=== PATIENT | female | born 1960 | race African-American/Black ===

== ENCOUNTER → 2018-03-12 | Outpatient (CLI) | payer MEDICAID ==
[2018-03-12 11:10] LABS: HCT 36.3 % (34.0-46.0); HGB 12.1 gm/dL (11.4-16.0); MCHC 33.4 g/dL (31.0-37.0); MCV 86.9 fL (80.0-100.0); Mean Platelet Volume 6.9; Platelet Count 248 k/uL (150-450); RBC 4.17 m/uL (3.80-5.40); RDW 13.3 % (11.5-15.5)
[2018-03-12 17:51] LABS: Albumin 3.9 g/dL (3.80-4.90); Albumin/Globulin Ratio 1.34 (1.20-2.10); Anion Gap 11.5 mmol/L (4.00-12.00); Carbon Dioxide 26.5 mmol/L (21.6-31.8); Globulin 2.9 g/dL (1.6-3.3); LDL Cholesterol,Calculated 154.4 mg/dL (0.0-131.0); Potassium 4.8 mmol/L (3.5-5.5); Total Bilirubin 0.4 mg/dL (0.2-1.2); Total Protein 6.8 g/dL (6.2-8.2); VLDL Calculation 17.6 mg/dL (5.00-40.00)
[2018-03-12 21:02] LABS: Hemoglobin A1C 14.8 % (4.0-6.0)
== END | disposition home or self-care (01) ==
LOC: LABWHC1 10:06
PROVIDERS: ATTEND Internal Medicine
DX: E11.40 Type 2 diabetes mellitus with diabetic neuropathy, unspecified (principal); E07.9 Disorder of thyroid, unspecified; E78.2 Mixed hyperlipidemia
CPT/HCPCS: 36415; 80053; 80061; 82043; 82570; 83036; 84443; 85027

== ENCOUNTER → 2018-03-18 | Outpatient (CLI) | payer MEDICAID ==
--- NOTE | 2018-03-18 23:42 | MR ---
EXAMINATION TYPE: MR hand RT wo con DATE OF EXAM: 03/18/2018 COMPARISON: HISTORY: Rt Hand 3rd digit open wound at end of digit, Skin ulcer with necrosis of muscle Standard multiplanar, multisequence MRI departmental protocol Multiplanar, multisequence images of the right hand were acquired. FINDINGS: On the STIR images there is increased signal in the distal phalanx of the middle finger. Th is has corresponding decreased signal on the T1 images. There is some increased fluid signal around t he PIP joint of the little finger. I see no fracture line. 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 IMPRESSION: Edema in the distal phalanx of the middle finger with surrounding mild soft tissue swelling and edema . This is consistent with cellulitis and osteomyelitis. Fluid signal around the middle phalanx and PIP joint of the little finger is nonspecific and could re late to some synovitis.
== END | disposition home or self-care (01) ==
LOC: RADMRIMAIN 21:30
PROVIDERS: ATTEND Internal Medicine
DX: L98.493 Non-pressure chronic ulcer of skin of other sites with necrosis of muscle (principal)

== ENCOUNTER → 2018-05-02 | Outpatient (CLI) | payer MEDICAID ==
--- NOTE | 2018-05-02 15:50 | US ---
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 GLAND SIZE: Right Lobe: 5.1 x 1.8 x 1.7 cm Overall Parenchyma: heterogenous Left Lobe: 5.0 x 1.4 x 1.7 cm Overall Parenchyma: heterogeneous Isthmus Thickness: 1.3 cm NODULES RIGHT: # of nodules measured on right: 4 1. 0.7 X 0.7 x 0.7 cm anechoic cystic nodule at the upper pole with well-defined margins. This nod ule is wider than tall and shows no intranodular vascularity. No prior measurement 2. 1.2 X 0.8 x 1.1 cm anechoic cystic nodule at the upper pole with well-defined margins. This nodu le is wider than tall and shows no intranodular vascularity. No prior measurement 3. 1.2 X 0.8 x 0.8 cm isoechoic solid nodule at the medial lower pole with poorly defined margins. This nodule is wider than tall and shows intranodular vascularity. Prior: Prior: This nodule and nodule 3 was measured as 1 nodule. Previous report not available t o technologist at time of exam due to PACS failure. Technologist measured at 2 nodules. This nodule h as irregular borders. 4. 1.3 X 0.9 x 1.2 cm isoechoic solid nodule at the lateral lower pole with poorly defined margins. This nodule is wider than tall and shows intranodular vascularity. Prior: This nodule and nodule 3 was measured as 1 nodule. Previous report not available to technol abdiel at time of exam due to PACS failure. Technologist measured at 2 nodules. This nodule has irregu lar borders. LEFT: # of nodules measured on left: 2 1. 0.8 X 0.6 x 0.6 cm hypoechoic solid nodule at the mid pole with well-defined margins. This nodu le is wider than tall and shows intranodular vascularity. Prior size: 0.7 x 0.5 x 0.8 cm 2. 0.9 X 0.8 x 1.0 cm anechoic mixed nodule at the lower pole with well-defined margins This nodule is wider than tall and shows no intranodular vascularity. Prior size: 0.6 x 0.4 x 0.6 cm ISTHMUS: # of nodules measured in the isthmus: 1 1. 2.5 X 1.3 x 2.1 cm anechoic mixed nodule at the mid pole with well-defined margins. This nodule is taller than wide and shows no intranodular vascularity. Prior size: 1.4 x 0.8 x 1.4 cm Bilateral neck scanned, no evidence of lymphadenopathy. IMPRESSION: 1. Enlarging nodule at the isthmus. 2. Enlarging right lobe thyroid nodules medial and inferior pole.
== END ==
LOC: RADUSWWP 08:59
PROVIDERS: ATTEND Internal Medicine
DX: E04.2 Nontoxic multinodular goiter (principal)
CPT/HCPCS: 76536

== ENCOUNTER 2018-05-30 08:50 | Day surgery (SDC) | payer MEDICAID ==
[2018-05-30 09:31] VITALS: TEMP 98.3
[2018-05-30] MEDS ORDERED: ALPRAZolam 0.5 MG TAB PO STA (09:34)
[2018-05-30 12:12] VITALS: RESP 16
[2018-05-30 12:13] VITALS: BP 146/76; PULSE 90
--- NOTE | 2018-05-30 12:27 | US ---
ULTRASOUND GUIDED FNA THYROID BIOPSY: CLINICAL HISTORY: Ultrasound request for 3 right-sided nodules single left-sided FINDINGS: The procedure was explained to the patient. The risks, complications, benefits and alternatives were discussed and any questions were answered. Informed consent was obtained. Patient was placed supin e on the ultrasound table and prepped and draped in the usual sterile fashion. Utilizing a 25 gauge needle, five passes were made into the each of the 4 requested nodules. Note is made the upper pole right thyroid nodule and isthmus nodule or cystic which may lower diagnostic yield of these nodules g iven lack of significant soft tissue component. Patient was stable throughout the procedure. Pathology is pending. All elements of maximal barrier technique were utilized. IMPRESSION: 1. Successful ultrasound guided FNA thyroid biopsy.
== END 2018-05-30 11:30 | disposition home or self-care (01) ==
LOC: RADPROMAIN 08:50
PROVIDERS: ATTEND Otolaryngology
DX: E04.1 Nontoxic single thyroid nodule (principal)
CPT/HCPCS: 10005; 10006; 88173; 88305

== ENCOUNTER 2018-06-03 06:51 | Day surgery (SDC) | payer MEDICAID ==
[2018-05-28 17:48] VITALS: BMI 28.2
[~2018-06-03 06:51] MED LIST: LACTATED RINGERS 1,000 ML IV SCH; ceFAZolin IN SWFI 2 GM/20 ML SYRINGE IVP ONE
[2018-06-03 07:11] VITALS: TEMP 98.5
[2018-06-03] MEDS ORDERED: LIDOCAINE 1% 20 ML VIAL (10MG/ML) FOR IV START INTRADERMA ONE (07:19)
[2018-06-03 07:23] LABS: Glucose,Whole Blood 293 mg/dL (75-99)
[2018-06-03] MEDS ORDERED: INSULIN ASPART (NovoLOG) 100 UNIT/ML VIAL SQ ONE (07:33)
[2018-06-03] MEDS ORDERED: BUPIVACAINE (PF) 0.5% 30 ML VIAL SQ ONE ×2 (07:56→08:22)
[2018-06-03] MEDS ORDERED: LIDOCAINE 2% INJ 20 MG/ML SQ ONE ×2 (07:56→08:22)
[2018-06-03] MEDS ORDERED: fentaNYL (PF) 50 MCG/ML 2 ML AMP ONE (08:11)
[2018-06-03] MEDS ORDERED: LIDOCAINE 1% INJ 10MG/ML (20 ML MDV) ONE (08:11)
[2018-06-03] MEDS ORDERED: PROPOFOL 10 MG/ML 20 ML VIAL IV ONE (08:11)
[2018-06-03] MEDS ORDERED: MIDAZOLAM 2 MG/2 ML VIAL ONE (08:11)
[2018-06-03 08:47] LABS: Glucose,Whole Blood 180 mg/dL (75-99)
[2018-06-03 09:01] VITALS: RESP 18
[2018-06-03 09:24] VITALS: BP 130/70; PULSE 89
--- NOTE | 2018-06-03 13:36 | OP ---
OPERATIVE REPORT DATE OF SURGERY: 06/03/2018 SURGEON: Toni Toscano DO. PREOPERATIVE DIAGNOSIS: Left carpal tunnel syndrome. POSTOPERATIVE DIAGNOSIS: Left carpal tunnel syndrome. PROCEDURE: Left carpal tunnel release. DESCRIPTION OF PROCEDURE: The patient was taken to the operative suite where a sedation was administered by the Department of Anesthesia. I then performed a local injection along the line of the incision with a combination of Marcaine and Xylocaine both without epinephrine. The hand was then prepped and draped in the usual manner. The arm was elevated, exsanguinated and the cuff was inflated to 250 mm of mercury. A longitudinal incision was made along the ring finger ray distal to the wrist crease. Dissection was taken through the skin and subcutaneous tissue, initially sharp through the skin and then blunt through the subcutaneous tissue to ensure protection of any potential terminal transverse branches of the palmar cutaneous nerve. The palmar fascia was then incised under direct vision longitudinally exposing the transverse carpal ligament. The transverse carpal ligament also was incised under direct vision. The dissection was then continued proximally beneath the skin under direct vision to release the distal forearm fascia. The median nerve was then reflected free of tenosynovium to ensure no adhesions. The tourniquet was then released. The wound was then irrigated and the skin was closed with a running 5-0 nylon suture. A soft bulky dressing was applied including a volar plaster splint holding the wrist in a neutral slightly extended position. The patient was then taken to the recovery room in satisfactory condition. MMODL / IJN: [id number] /
== END 2018-06-03 09:10 | disposition home or self-care (01) ==
LOC: OR 06:51
PROVIDERS: ATTEND Orthopaedic Surgery Hand Surgery
DX: G56.02 Carpal tunnel syndrome, left upper limb (principal); I10 Essential (primary) hypertension; E10.40 Type 1 diabetes mellitus with diabetic neuropathy, unspecified; E10.51 Type 1 diabetes mellitus with diabetic peripheral angiopathy without gangrene; K21.9 Gastro-esophageal reflux disease without esophagitis; Z86.73 Personal history of transient ischemic attack (TIA), and cerebral infarction without residual deficits; Z79.4 Long term (current) use of insulin; Z79.899 Other long term (current) drug therapy; E78.5 Hyperlipidemia, unspecified; Z89.021 Acquired absence of right finger(s); Z89.421 Acquired absence of other right toe(s)
CPT/HCPCS: 64721; J2001 ×2; J2250; J3010; J2704

== ENCOUNTER → 2018-07-23 | Outpatient (CLI) | payer MEDICAID ==
[2018-07-23 19:29] LABS: Albumin 3.8 g/dL (3.80-4.90); Albumin/Globulin Ratio 1.31 (1.60-3.17); Anion Gap 6.7 mmol/L (4.00-12.00); Calcium 9.1 mg/dL (8.7-10.3); Carbon Dioxide 28.3 mmol/L (21.6-31.8); Globulin 2.9 g/dL (1.6-3.3); LDL Cholesterol,Calculated 153.8 mg/dL (0.0-131.0); Potassium 4.6 mmol/L (3.5-5.5); Total Bilirubin 0.4 mg/dL (0.3-1.2); Total Protein 6.7 g/dL (6.2-8.2); VLDL Calculation 15.2 mg/dL (5.00-40.00)
[2018-07-23 21:24] LABS: Hemoglobin A1C 13.2 % (4.0-6.0)
== END ==
LOC: LABWHC1 10:19
PROVIDERS: ATTEND Internal Medicine
DX: E11.40 Type 2 diabetes mellitus with diabetic neuropathy, unspecified (principal); E78.2 Mixed hyperlipidemia
CPT/HCPCS: 36415; 80053; 80061; 83036

== ENCOUNTER 2018-08-05 06:29 | Day surgery (SDC) | payer MEDICAID ==
[2018-08-04 09:31] VITALS: BMI 29.8
[~2018-08-05 06:29] MED LIST changes: +DEXAMETHASONE SOD PHOSPHATE 10 MG/ML 1 ML VIAL IV ONE; +HYDROmorphone 0.5 MG/0.5 ML SYRINGE IVP PRN; +MIDAZOLAM 2 MG/2 ML VIAL IV PRN; +ONDANSETRON 4 MG/2 ML VIAL IVP ONE; +Pre Op ABX Message 1 EACH MISC MISCELLANE ONE; +SCOPOLAMINE 1.5MG/72HR PATCH TRANSDERM ONE; -ceFAZolin IN SWFI 2 GM/20 ML SYRINGE IVP ONE
[2018-08-05 06:49] VITALS: TEMP 97.8
[2018-08-05] MEDS ORDERED: INSULIN ASPART (NovoLOG) 100 UNIT/ML VIAL SQ ONE ×2 (07:21→08:05)
[2018-08-05 07:23] LABS: Glucose,Whole Blood 459 mg/dL (75-99)
[2018-08-05] MEDS ORDERED: fentaNYL (PF) 50 MCG/ML 2 ML AMP ONE (07:27)
[2018-08-05] MEDS ORDERED: PROPOFOL 10 MG/ML 20 ML VIAL IV ONE (07:27)
[2018-08-05] MEDS ORDERED: MIDAZOLAM 2 MG/2 ML VIAL ONE (07:27)
[2018-08-05] MEDS ORDERED: BUPIVACAINE (PF) 0.5% 30 ML VIAL SQ ONE (07:40)
[2018-08-05] MEDS ORDERED: LIDOCAINE 2% INJ 20 MG/ML SQ ONE (07:40)
[2018-08-05 07:57] VITALS: RESP 16
[2018-08-05 08:05] LABS: Glucose,Whole Blood 393 mg/dL (75-99)
[2018-08-05 08:22] VITALS: BP 123/83; PULSE 90
--- NOTE | 2018-08-05 23:02 | OP ---
OPERATIVE REPORT DATE OF SERVICE: 08/05/2018. PREOPERATIVE DIAGNOSIS: Right carpal tunnel syndrome. POSTOPERATIVE DIAGNOSIS: Right carpal tunnel syndrome. PROCEDURE: Right carpal tunnel release. DESCRIPTION OF PROCEDURE: The patient is taken to the Operative Suite where the procedure was done local with sedation. A light amount of IV sedation was provided by the Department of Anesthesia but the patient was kept alert enough to indicate any ill effect in the hand or fingers during the procedure. Two endoscopic portals were prepared and anesthetized in the usual way. The proximal portal was approximately 1 cm proximal to the distal wrist crease and just ulnar to the midline. The distal portal was longitudinal, located at the edge of the transverse carpal ligament, using the usual anatomical landmarks. Both incisions were anesthetized with 2% Xylocaine and 0.5% Marcaine, both without Epinephrine. The proximal incision was opened first, retractors were used for exposure and for hemostasis. Blunt dissection was taken through the subcutaneous tissue until the forearm fascia was identified. This was then incised longitudinally. By applying volar retraction at the distal aspect of the incision, the potential space beneath the forearm fascia and the bursa containing the flexor tensions was easily identified. A blunt probe was then inserted into this space down into the transverse carpal ligament. The undersurface of the transverse carpal ligament was palpated, and by running the dissector along its undersurface, a washboard effect could be palpated, insuring the proper position had been obtained. At this point, the distal incision was opened. Dissection was taken bluntly through the subcutaneous tissue to the palmar fascia. This is incised longitudinally, and the edge of the transverse carpal ligament was identified under direct vision. The spatula dissector was then brought through the distal incision to ensure the entire transverse carpal ligament was identified and the proper dissection planes had been attained. A trocar and slotted cannula assembly are inserted into the proximal incision. The hand was placed on the rodriguez in an extended position. Retractors were placed into the distal incision so the trocar assembly could then be brought out through the distal incision under direct visualization. The trocar was removed leaving the slotted cannula. The endoscope then inserted in the proximal incision and the light and the focus were adjusted. Using a variety of knives, the transverse carpal ligament was released under direct vision. Complete release of the transverse carpal ligament was confirmed by a variety of means. First of all, the edges could be seen to directly retract apart as they exist under tension. In addition, the fat could be seen to fall into the cannula. Additionally, a probe could be palpated beneath the skin and the lights in the scope could be seen much more clearly beneath the skin. The trocar was reinserted into the slotted cannula and the assembly was removed. The hand was then taken out of the hand rodriguez. The patient was asked to put the fingers through a full range of motion. The patient was asked of any numbness in the fingers and none was noted. Both incisions were closed with a single suture of 6-0 nylon. Soft, bulky dressing was applied and the patient was taken to the Recovery Room in satisfactory condition. MMODL / IJN: [id number] /
--- NOTE | 2018-08-07 14:42 | CDI ---
Outpatient Documentation Clarification Form Date: 08/07/18 CDS/Art Conservator Name: Mili Morales Phone: If any questions, call Rae Mcgraw Application Services Manager at [phone] Patient Name: Liliana Sands Admit Date: 08/05/18 Discharge Date: 08/05/18 ATTENTION: The [facility] Coding Staff appreciate your assistance in clarifying documentation. Please respond to the clarification below the line at the bottom and electronically sign. The [facility] Coding staff will review the response and follow-up if needed. Please note: Queries are made part of the Legal Health Record. If you have any questions, please contact the Application Services Manager. Dear Dr. Toscano, Please provide clarification as to the type of diabetes for this patients. On the first page of the H&P under Past Medical History diabetes type I is indicated. On page 2 of the H&P Under Diagnosis, type 2 is indicated. Please clarify. Thank you for your kind consideration. Don't know MTDD
== END 2018-08-05 08:42 | disposition home or self-care (01) ==
LOC: OR 06:29
PROVIDERS: ATTEND Orthopaedic Surgery Hand Surgery
DX: G56.01 Carpal tunnel syndrome, right upper limb (principal); Z79.4 Long term (current) use of insulin; Z79.899 Other long term (current) drug therapy; I10 Essential (primary) hypertension; E78.49 Other hyperlipidemia; J45.909 Unspecified asthma, uncomplicated; G47.33 Obstructive sleep apnea (adult) (pediatric); Z87.891 Personal history of nicotine dependence; Z86.73 Personal history of transient ischemic attack (TIA), and cerebral infarction without residual deficits; E11.9 Type 2 diabetes mellitus without complications
CPT/HCPCS: 29848; J2001; J2250; J2405; J3010; J2704

== ENCOUNTER → 2018-08-14 | Outpatient (CLI) | payer MEDICAID ==
--- NOTE | 2018-08-26 10:03 | MM ---
Reason for exam: screening (asymptomatic). Last mammogram was performed 1 year and 9 months ago. History: Patient is postmenopausal. Family history of breast cancer in mother. Benign excisional biopsy of the right breast, 2016. Physical Findings: A clinical breast exam by your physician is recommended on an annual basis and results should be correlated with mammographic findings. MG Screening Mammo w CAD Bilateral CC and MLO view(s) were taken. Prior study comparison: November 01, 2016, mammogram, performed at [facility]. May 10, 2014, mammogram, performed at [facility]. January 02, 2013, bilateral digital screening mammo w/CAD. December 18, 2010, bilateral digital screening mammo w/CAD. The breast tissue is heterogeneously dense. This may lower the sensitivity of mammography. Benign appearing calcifications in the right breast. No suspicious abnormality. Prominent bilateral axillary lymph nodes back to 2009. Right biopsy marker noted. No significant changes when compared with prior studies. ASSESSMENT: Benign, BI-RAD 2 RECOMMENDATION: Routine screening mammogram of both breasts in 1 year. Manage on a clinical basis with regard to chronic bilateral axillary lymph node prominence back to 2009.
== END | disposition home or self-care (01) ==
LOC: RADMAMWWP 11:52
PROVIDERS: ATTEND Internal Medicine
DX: Z12.31 Encounter for screening mammogram for malignant neoplasm of breast (principal)
CPT/HCPCS: 77067

== ENCOUNTER → 2018-10-03 | Outpatient (CLI) | payer MEDICAID ==
[2018-10-03 11:36] LABS: HCT 36.3 % (34.0-46.0); MCH 28.2 pg (25.0-35.0); MCHC 33.1 g/dL (31.0-37.0); MCV 85.3 fL (80.0-100.0); Mean Platelet Volume 7.7; Platelet Count 241 k/uL (150-450); RBC 4.25 m/uL (3.80-5.40); RDW 13.4 % (11.5-15.5); WBC 7.1 k/uL (3.8-10.6)
[2018-10-03 18:49] LABS: African American GFR (CKD) 83.4 (60.0-200.0); Albumin 3.8 g/dL (3.80-4.90); Albumin/Globulin Ratio 1.27 (1.60-3.17); Anion Gap 9.3 mmol/L (4.00-12.00); BUN/Creat Ratio 27.78 Ratio (12.00-20.00); Carbon Dioxide 25.7 mmol/L (21.6-31.8); LDL Cholesterol,Calculated 156.2 mg/dL (0.0-131.0); Potassium 4.4 mmol/L (3.5-5.5); Total Bilirubin 0.4 mg/dL (0.3-1.2); Total Protein 6.8 g/dL (6.2-8.2); VLDL Calculation 20.8 mg/dL (5.00-40.00)
[2018-10-03 18:57] LABS: T4, Free (Free Thyroxine) 1.2 ng/dL (0.80-1.80)
== END ==
LOC: LABWHC1 11:00
PROVIDERS: ATTEND Nurse Practitioner Family
DX: E78.2 Mixed hyperlipidemia (principal); G62.89 Other specified polyneuropathies
CPT/HCPCS: 36415; 80053; 80061; 82607; 84207; 84439; 84443; 84481; 85027

== ENCOUNTER → 2018-11-13 | Outpatient (CLI) | payer MEDICAID ==
[2018-11-13 14:21] LABS: Appearance,Urine Clear (Clear); Bilirubin,Urine Negative (Negative); Blood,Urine Negative (Negative); Color,Urine Light Yellow; Glucose,Urine (UA) 4+ (Negative); Ketones,Urine Negative (Negative); Leukocyte Esterase,Urine Trace (Negative); Nitrite,Urine Negative (Negative); PH, Urine 6.5 (5.0-8.0); Protein,Urine 1+ (Negative); RBC,Urine 1 /hpf (0-5); Specific Gravity,Urine 1.017 (1.001-1.035); Squamous Epithelial Cell,Urine 1 /hpf (0-4); Urobilinogen,Urine <2.0 mg/dL (<2.0); WBC,Urine 2 /hpf (0-5)
[2018-11-13 14:23] LABS: Basophils % (A) 1 %; Eosinophils # (A) 0.1 k/uL (0-0.7); Eosinophils % (A) 2 %; HCT 34.9 % (34.0-46.0); HGB 11.7 gm/dL (11.4-16.0); Lymphocytes % (A) 35 %; MCH 28.3 pg (25.0-35.0); MCHC 33.4 g/dL (31.0-37.0); MCV 84.8 fL (80.0-100.0); Mean Platelet Volume 7.3; Monocytes # (A) 0.3 k/uL (0-1.0); Monocytes % (A) 6 %; Neutrophils # (A) 3.1 k/uL (1.3-7.7); Neutrophils % (A) 54 %; Platelet Count 230 k/uL (150-450); RBC 4.12 m/uL (3.80-5.40); RDW 14.2 % (11.5-15.5); WBC 5.7 k/uL (3.8-10.6)
[2018-11-13 15:42] LABS: Erythrocyte Sedimentation Rate 41 mm/hr (0-20)
[2018-11-13 19:06] LABS: Protein, Total 6.8 g/dL (6.2-8.2)
[2018-11-13 19:13] LABS: Vitamin D 25 Hydroxy 20.6 ng/mL (30.0-100.0)
[2018-11-13 19:31] LABS: ALT 26 U/L (8-44); AST 18 U/L (13-35); African American GFR (CKD) 73.4 (60.0-200.0); Albumin/Globulin Ratio 1.41 (1.60-3.17); Alkaline Phosphatase 99 U/L (41-126); C Reactive Protein <0.4 mg/dL (0.0-0.8); Calcium 9.4 mg/dL (8.7-10.3); Carbon Dioxide 26.9 mmol/L (21.6-31.8); Chloride 96 mmol/L (96-109); Creatine Kinase 360 U/L (26-186); Globulin 2.9 g/dL (1.6-3.3); Glucose 367 mg/dL (70-110); Potassium 4.8 mmol/L (3.5-5.5); Sodium 130 mmol/L (135-145); Total Bilirubin 0.4 mg/dL (0.3-1.2); Uric Acid 4.8 mg/dL (2.9-7.7)
[2018-11-13 19:33] LABS: Rheumatoid Factor <4 IU/mL (0-13)
[2018-11-13 20:16] LABS: Hepatitis C IgG Antibody Non-Reactive (Non-Reactive)
[2018-11-13 20:58] LABS: Anti-DNA, DS unit <1.0 IU/mL; Anti-Smith Ab Interp NEGATIVE (NEGATIVE); Cardiolipin Ab IgG Interp NEGATIVE (NEGATIVE); Cardiolipin Ab IgM Interp NEGATIVE (NEGATIVE); Cardiolipin IgA Antibody 1.2 U/mL; Cardiolipin IgM Antibody 2.9 U/mL; Cyclic Citrull Pep IgG Unit <0.5 U/mL; Cyclic Citrullinated Pep IgG NEGATIVE (NEGATIVE); DNA Double-Stranded NEGATIVE (NEGATIVE); Scleroderma SC-70 Ab <0.2 AI
[2018-11-14 10:24] LABS: HLA B27 NEGATIVE
[2018-11-14 11:03] LABS: Albumin 3.68 g/dL (3.80-4.90); Gamma Globulin 1.35 g/dL (0.70-1.50)
[2018-11-14 12:57] LABS: Angiotensin-1 Converting Enz. 53 U/L (8-52)
[2018-11-14 13:32] LABS: APTT 37 Sec(s) (<43); Dilute Russell Viper Venom 40 Sec(s) (<44)
[2018-11-14 13:47] LABS: Histone Antibody 0.6 UNITS (<1.0)
[2018-11-14 15:34] LABS: C-ANCA <1:20 Titer (<1:20)
[2018-11-15 12:25] LABS: Aldolase 4.2 U/L (1.2-7.6)
== END | disposition home or self-care (01) ==
LOC: LABWHC1 13:21
PROVIDERS: ATTEND Internal Medicine Rheumatology
DX: M34.9 Systemic sclerosis, unspecified (principal); G89.29 Other chronic pain
CPT/HCPCS: 36415; 80053; 81001; 82085; 82164; 82306; 82550; 83516; 83883; 84165; 84439; 84443; 84550; 85025; 85613; 85652; 85730; 86038; 86140; 86147; 86160; 86162; 86200; 86225; 86235; 86255; 86334; 86431; 86803; 86812; 87340

== ENCOUNTER → 2019-05-06 | Outpatient (CLI) | payer MEDICAID ==
[2019-05-06 12:54] LABS: Basophils % (A) 0 %; Eosinophils # (A) 0.1 k/uL (0-0.7); Eosinophils % (A) 2 %; HCT 35.8 % (34.0-46.0); HGB 11.8 gm/dL (11.4-16.0); Lymphocytes # (A) 1.6 k/uL (1.0-4.8); Lymphocytes % (A) 36 %; MCH 27.7 pg (25.0-35.0); Mean Platelet Volume 7.4; Monocytes # (A) 0.2 k/uL (0-1.0); Monocytes % (A) 5 %; Neutrophils # (A) 2.4 k/uL (1.3-7.7); Neutrophils % (A) 54 %; Platelet Count 223 k/uL (150-450); RBC 4.26 m/uL (3.80-5.40); WBC 4.4 k/uL (3.8-10.6)
[2019-05-06 17:41] LABS: Albumin 3.8 g/dL (3.80-4.90); Albumin/Globulin Ratio 1.36 (1.60-3.17); Anion Gap 6.9 mmol/L (4.00-12.00); Calcium 9.2 mg/dL (8.7-10.3); Carbon Dioxide 28.1 mmol/L (21.6-31.8); Chol/HDL Ratio 2.51; Globulin 2.8 g/dL (1.6-3.3); LDL Cholesterol,Calculated 91.6 mg/dL (0.0-131.0); Non-African American GFR(CKD) 56.1 (60.0-200.0); Potassium 4.9 mmol/L (3.5-5.5); Total Bilirubin 0.3 mg/dL (0.2-1.2); Total Protein 6.6 g/dL (6.2-8.2); VLDL Calculation 18.4 mg/dL (5.00-40.00)
[2019-05-06 19:20] LABS: Hemoglobin A1C 13.9 % (4.0-6.0)
== END | disposition home or self-care (01) ==
LOC: LABWHC1 10:40
PROVIDERS: ATTEND Internal Medicine
DX: I10 Essential (primary) hypertension (principal); E78.5 Hyperlipidemia, unspecified; E11.9 Type 2 diabetes mellitus without complications
CPT/HCPCS: 36415; 80053; 80061; 83036; 84443; 85025

== ENCOUNTER 2019-09-28 11:51 | Inpatient (IN) | payer MEDICAID ==
--- NOTE | 2019-09-28 12:46 | ED ---
General Adult HPI - General Chief complaint: Extremity Injury, Lower Stated complaint: Leg weakness Time Seen by Provider: 09/28/19 12:10 Source: patient, RN notes reviewed Mode of arrival: ambulatory Limitations: no limitations - History of Present Illness Initial comments: Patient is a pleasant 68-year-old female presenting to the emergency Department with leg weakness. Onset of symptoms was 2 days ago. Patient was trying to walk to her car after work with sudden left leg weakness. Patient fell down. Patient needed to be helped to her car. Patient did feel off balance. Patient states she chronically has some intermittent episodes of being off balance. Patient states over the past one year she has been having headaches that have been moderate. Not severe. No headache at this time. Patient still has some left leg problems since Saturday. Patient did go to urgent care who recommended she come to the emergency department to be evaluated for possible aneurysm or clot in her brain. - Related Data Home Medications Medication Instructions Recorded Confirmed Insulin Glargine,Hum.rec.anlog 50 unit SQ QAM 05/27/18 09/28/19 [Tofrankie Cochranostjohanna] Stool Softner 1 cap PO HS 05/27/18 09/28/19 Atorvastatin [Lipitor] 10 mg PO DAILY 09/28/19 09/28/19 Dulaglutide [Trulicity] 1.5 mg SQ MO 09/28/19 09/28/19 Furosemide [Lasix] 20 mg PO DAILY 09/28/19 09/28/19 INSULIN LISPRO (humaLOG) [humaLOG] 15 units SQ AC-TID 09/28/19 09/28/19 Irbesartan [Avapro] 75 mg PO DAILY 09/28/19 09/28/19 Multivitamins, Thera [Multivitamin 1 tab PO DAILY 09/28/19 09/28/19 (formulary)] Allergies Allergy/AdvReac Type Severity Reaction Status Date / Time No Known Allergies Allergy Verified 09/28/19 13:33 Review of Systems ROS Statement: Those systems with pertinent positive or pertinent negative responses have been documented in the HPI. ROS Other: All systems not noted in ROS Statement are negative. Constitutional: Denies: fever Eyes: Denies: eye pain ENT: Denies: ear pain Respiratory: Denies: dyspnea Cardiovascular: Denies: chest pain Endocrine: Denies: fatigue Gastrointestinal: Denies: abdominal pain Genitourinary: Denies: dysuria Musculoskeletal: Denies: back pain Skin: Denies: rash Neurological: Reports: as per HPI, weakness. Denies: confusion Past Medical History Past Medical History: CVA/TIA, Diabetes Mellitus, Sleep Apnea/CPAP/BIPAP, Thyroid Disorder Additional Past Medical History / Comment(s): thyroid nodules,TIA "yrs ago"-no residual,uses cpap History of Any Multi-Drug Resistant Organisms: None Reported Past Surgical History: Section Additional Past Surgical History / Comment(s): c sect x 3,rt 2nd toe partially amputated,rt digit 2nd digit partial amputed,cervical (cage)fusion Past Anesthesia/Blood Transfusion Reactions: Previous Problems w/ Anesthesia Additional Past Anesthesia/Blood Transfusion Reaction / Comment(s): difficult intubation with prior surgery at [facility]-surgery aborted and rescheduled-no current letter. Unknown family hx-pt adopted Past Psychological History: No Psychological Hx Reported Past Alcohol Use History: Occasional Past Drug Use History: None Reported - Past Family History Mother History Unknown: Yes Additional Family Medical History / Comment(s): pt adopted General Exam Limitations: no limitations General appearance: alert, in no apparent distress Head exam: Present: atraumatic, normocephalic Eye exam: Present: normal appearance, PERRL, EOMI. Absent: nystagmus ENT exam: Present: normal oropharynx Neck exam: Present: normal inspection Respiratory exam: Present: normal lung sounds bilaterally Cardiovascular Exam: Present: regular rate, normal rhythm Expanded Peripheral pulses: 2+: Radial (R), Radial (L), Dorsalis Pedis (R), Dorsalis Pedis (L) GI/Abdominal exam: Present: soft. Absent: tenderness Extremities exam: Present: normal inspection. Absent: tenderness, calf tenderness Back exam: Present: normal inspection Neurological exam: Present: alert, oriented X3, CN II-XII intact Expanded Neurological exam: Present: protecting the airway Patient oriented to: Present: person, place, time Speech: Present: fluid speech Cranial nerves: EOM's Intact: Normal, Facial Sensation: Normal Motor strength exam: RUE: 5, LUE: 5, RLE: 5, LLE: 4 Eye Response: (4) open spontaneously Motor Response: (6) obeys commands Verbal Response: (5) oriented Psychiatric exam: Present: normal affect, normal mood Skin exam: Present: abrasion (left knee) Course Vital Signs 09/28/19 11:55 Temperature 98.8 F Pulse Rate 98 Respiratory 18 Rate Blood Pressure 137/74 O2 Sat by Pulse 97 Oximetry EKG Findings - EKG Comments: EKG Findings:: Sinus tachycardia 102. IL 182. QRS 96. QT 362. QTC 471. Normal axis. Normal QRS. No acute ST change. Medical Decision Making - Medical Decision Making Patient reevaluated and updated. Case discussed with Dr. Bennett, who will admit for Dr. Patricio. - Lab Data Result diagrams: 09/28/19 12:53 09/28/19 12:53 Lab Results 09/28/19 09/28/19 09/28/19 Range/Units 12:53 12:53 12:53 WBC 5.8 (3.8-10.6) k/uL RBC 3.91 (3.80-5.40) m/uL Hgb 10.9 L (11.4-16.0) gm/dL Hct 33.9 L (34.0-46.0) % MCV 86.9 (80.0-100.0) fL MCH 28.0 (25.0-35.0) pg MCHC 32.2 (31.0-37.0) g/dL RDW 13.9 (11.5-15.5) % Plt Count 210 (150-450) k/uL Neutrophils % 63 % Lymphocytes % 27 % Monocytes % 4 % Eosinophils % 3 % Basophils % 1 % Neutrophils # 3.7 (1.3-7.7) k/uL Lymphocytes # 1.6 (1.0-4.8) k/uL Monocytes # 0.2 (0-1.0) k/uL Eosinophils # 0.2 (0-0.7) k/uL Basophils # 0.0 (0-0.2) k/uL PT 9.5 (9.0-12.0) sec INR 0.9 (<1.2) APTT 20.9 L (22.0-30.0) sec Sodium 134 L (137-145) mmol/L Potassium 5.1 (3.5-5.1) mmol/L Chloride 100 (98-107) mmol/L Carbon Dioxide 26 (22-30) mmol/L Anion Gap 8 mmol/L BUN 25 H (7-17) mg/dL Creatinine 0.90 (0.52-1.04) mg/dL Est GFR (CKD-EPI)AfAm 83 (>60 ml/min/1.73 sqM) Est GFR (CKD-EPI)NonAf 72 (>60 ml/min/1.73 sqM) Glucose 353 H (74-99) mg/dL Calcium 9.2 (8.4-10.2) mg/dL Total Bilirubin 0.3 (0.2-1.3) mg/dL AST 23 (14-36) U/L ALT 22 (4-34) U/L Alkaline Phosphatase 110 (38-126) U/L Troponin I (0.000-0.034) ng/mL Total Protein 7.2 (6.3-8.2) g/dL Albumin 3.7 (3.5-5.0) g/dL 09/28/19 Range/Units 12:53 WBC (3.8-10.6) k/uL RBC (3.80-5.40) m/uL Hgb (11.4-16.0) gm/dL Hct (34.0-46.0) % MCV (80.0-100.0) fL MCH (25.0-35.0) pg MCHC (31.0-37.0) g/dL RDW (11.5-15.5) % Plt Count (150-450) k/uL Neutrophils % % Lymphocytes % % Monocytes % % Eosinophils % % Basophils % % Neutrophils # (1.3-7.7) k/uL Lymphocytes # (1.0-4.8) k/uL Monocytes # (0-1.0) k/uL Eosinophils # (0-0.7) k/uL Basophils # (0-0.2) k/uL PT (9.0-12.0) sec INR (<1.2) APTT (22.0-30.0) sec Sodium (137-145) mmol/L Potassium (3.5-5.1) mmol/L Chloride (98-107) mmol/L Carbon Dioxide (22-30) mmol/L Anion Gap mmol/L BUN (7-17) mg/dL Creatinine (0.52-1.04) mg/dL Est GFR (CKD-EPI)AfAm (>60 ml/min/1.73 sqM) Est GFR (CKD-EPI)NonAf (>60 ml/min/1.73 sqM) Glucose (74-99) mg/dL Calcium (8.4-10.2) mg/dL Total Bilirubin (0.2-1.3) mg/dL AST (14-36) U/L ALT (4-34) U/L Alkaline Phosphatase (38-126) U/L Troponin I <0.012 (0.000-0.034) ng/mL Total Protein (6.3-8.2) g/dL Albumin (3.5-5.0) g/dL - Radiology Data Radiology results: report reviewed (Computed tomography scan of the brain shows atrophy and chronic small vessel ischemia without acute intercranial process. CT angios shows no significant abnormality.), image reviewed (Chest x-ray and left leg x-ray revealed no acute process) Disposition Clinical Impression: CVA (cerebral vascular accident) Disposition: [facility] Is patient prescribed a controlled substance at d/c from ED?: No Referrals: Kehinde Patricio DO [Primary Care Provider] - 1-2 days Decision Time: 15:43
[2019-09-28 13:21] LABS: Basophils % (A) 1 %; Eosinophils # (A) 0.2 k/uL (0-0.7); Eosinophils % (A) 3 %; HCT 33.9 % (34.0-46.0); HGB 10.9 gm/dL (11.4-16.0); Lymphocytes # (A) 1.6 k/uL (1.0-4.8); Lymphocytes % (A) 27 %; MCHC 32.2 g/dL (31.0-37.0); MCV 86.9 fL (80.0-100.0); Mean Platelet Volume 7.2; Monocytes # (A) 0.2 k/uL (0-1.0); Monocytes % (A) 4 %; Neutrophils # (A) 3.7 k/uL (1.3-7.7); Neutrophils % (A) 63 %; Platelet Count 210 k/uL (150-450); RBC 3.91 m/uL (3.80-5.40); RDW 13.9 % (11.5-15.5); WBC 5.8 k/uL (3.8-10.6)
--- NOTE | 2019-09-28 13:24 | XR ---
EXAMINATION TYPE: XR tibia fibula LT DATE OF EXAM: 09/28/2019 COMPARISON: NONE HISTORY: Pain TECHNIQUE: Two views are submitted. FINDINGS: The osseous structures are intact. The joint spaces are preserved. IMPRESSION: 1. No acute osseous abnormality.
--- NOTE | 2019-09-28 13:25 | XR ---
EXAMINATION TYPE: XR chest 2V DATE OF EXAM: 09/28/2019 COMPARISON: October 06, 2009 HISTORY: Shortness of breath TECHNIQUE: Frontal and lateral views of the chest are obtained. FINDINGS: Scattered senescent parenchymal changes noted No evidence for infiltrate. No evidence for atelectasis. Heart size is stable. Mediastinal structures are stable and grossly unremarkable. No evidence for hilar prominence. Degenerative changes dorsal spine. IMPRESSION: 1. No evidence for acute pulmonary disease.
[2019-09-28 13:30] LABS: Albumin 3.7 g/dL (3.5-5.0); Calcium 9.2 mg/dL (8.4-10.2); Potassium 5.1 mmol/L (3.5-5.1); Total Bilirubin 0.3 mg/dL (0.2-1.3); Total Protein 7.2 g/dL (6.3-8.2)
[2019-09-28 13:40] LABS: INR 0.9 (<1.2); Prothrombin Time 9.5 sec (9.0-12.0)
[2019-09-28 13:59] LABS: Partial Thromboplastin Time 20.9 sec (22.0-30.0)
--- NOTE | 2019-09-28 14:31 | CT ---
EXAMINATION TYPE: CT brain wo con for TPA DATE OF EXAM: 09/28/2019 COMPARISON: None HISTORY: Stroke suspected, neuro deficits CT DLP: 1089.[address] of the brain was performed. The ventricles, basal cisterns and sulci overlying the cerebral convexities demonstrate mild enlargem ent. There is no evidence for intracranial hemorrhage or sulcal effacement. There is decreased attenuation about the periventricular white matter and deep white matter of both c erebral hemispheres, compatible with chronic small vessel ischemia. Differential diagnosis does inclu de demyelination. No mass effects are seen.No midline shift. Osseous calvarium is intact. If symptoms persist consider MRI. IMPRESSION: 1. Age related atrophic and chronic small vessel ischemic change without acute intracranial process s een at this time.
--- NOTE | 2019-09-28 14:47 | CT ---
EXAMINATION TYPE: CT angio head neck DATE OF EXAM: 09/28/2019 COMPARISON: None HISTORY: Neuro deficits, stroke suspected CT DLP: 603.5 mGycm CONTRAST: Performed with IV Contrast, patient injected with 65 mL of Isovue 370. Combination Contrast CTA cervical carotids and [place] CTA cervical carotids with 3-D recons truction Contrast CTA of the cervical carotids was performed 3-D reconstruction imaging obtained at a separate workstation. Right carotid system: Mild plaque is seen of the right common carotid artery. There is mild plaque a lso noted at the carotid bulb and proximal ICA. No significant diameter reduction. ECA is patent. Right vertebral artery appears unremarkable. Left carotid system: Mild plaque is seen of the left common carotid artery. There is mild plaque als o noted at the carotid bulb and proximal ICA. No significant diameter reduction. ECA is patent. Lef t vertebral artery appears unremarkable. IMPRESSION: 1. No significant diameter reduction to account for the patient's symptoms. CTA [place] with 3-D reconstruction Contrast CTA of the [place] was performed 3-D reconstruction imaging obtained at a separate workstation. Vertebrobasilar system as well as intracranial portions of the internal carotid arteries and their [place] tributaries are patent. I do not see evidence for sizable aneurysm or vascular malformation. Pl ease note MRI provides greater sensitivity and specificity. Visualized brain appears grossly unremar kable. IMPRESSION: 1. No significant abnormality.
[2019-09-28] MEDS ORDERED: ASPIRIN 325 MG TAB PO STA (15:44)
[2019-09-28 17:17] LABS: Glucose,Whole Blood 299 mg/dL (75-99)
[2019-09-28] MEDS: SODIUM CHLORIDE 0.9% 1,000 ML IV SCH (17:20)
[2019-09-28] MEDS: INSULIN ASPART (NovoLOG) 100 UNIT/ML VIAL SQ SCH ×2 (17:41→20:52)
[2019-09-28 20:42] LABS: Glucose,Whole Blood 261 mg/dL (75-99)
[2019-09-28] MEDS ORDERED: MAG HYDROX/AL HYDROX/SIMETH 30 ML CUP PO PRN (20:58)
[2019-09-28] MEDS ORDERED: MAGNESIUM HYDROXIDE 2,400 MG/10 ML CUP PO PRN (20:58)
[2019-09-28] MEDS ORDERED: LACTULOSE 20 GM/30 ML CUP PO PRN (20:58)
[2019-09-28] MEDS ORDERED: MELATONIN 3 MG TABLET PO PRN (20:58)
[2019-09-28] MEDS ORDERED: ONDANSETRON 4 MG/2 ML VIAL IVP PRN (20:58)
[2019-09-28] MEDS ORDERED: CALCIUM CARBONATE 500 MG CHEWABLE PO PRN (20:58)
[2019-09-28] MEDS ORDERED: NALOXONE 0.4 MG/ML 1 ML VIAL IV PRN (20:58)
[2019-09-28] MEDS: ENOXAPARIN 40 MG/0.4 ML SYRINGE SQ SCH (22:01)
[2019-09-28] MEDS: ATORVASTATIN 10 MG TAB PO SCH (22:02)
[2019-09-29] MEDS: SODIUM CHLORIDE 0.9% 1,000 ML IV SCH ×2 (02:23→12:32)
[2019-09-29 06:11] LABS: Glucose,Whole Blood 207 mg/dL (75-99)
[2019-09-29] MEDS ORDERED: INSULIN DETEMIR (LEVEMIR) 100 UNIT/ML SYR SQ SCH (07:00)
[2019-09-29 07:32] LABS: Glucose,Whole Blood 214 mg/dL (75-99)
[2019-09-29 08:05] LABS: Cholesterol 184 mg/dL (<200); HDL Cholesterol 72 mg/dL (40-60); LDL Cholesterol,Calculated 86 mg/dL (0-99); Triglycerides 129 mg/dL (<150)
[2019-09-29 08:29] LABS: Basophils % (A) 0 %; Eosinophils # (A) 0.1 k/uL (0-0.7); Eosinophils % (A) 2 %; HCT 34.9 % (34.0-46.0); HGB 11.4 gm/dL (11.4-16.0); Lymphocytes # (A) 1.5 k/uL (1.0-4.8); Lymphocytes % (A) 33 %; MCH 28.4 pg (25.0-35.0); MCHC 32.6 g/dL (31.0-37.0); MCV 87.3 fL (80.0-100.0); Mean Platelet Volume 7.7; Monocytes # (A) 0.2 k/uL (0-1.0); Monocytes % (A) 5 %; Neutrophils # (A) 2.6 k/uL (1.3-7.7); Neutrophils % (A) 58 %; Platelet Count 228 k/uL (150-450); RBC 4.01 m/uL (3.80-5.40); WBC 4.5 k/uL (3.8-10.6)
[2019-09-29 08:35] LABS: African American GFR (CKD) >90 (>60 ml/min/1.73 sqM); Anion Gap 9 mmol/L; Blood Urea Nitrogen 21 mg/dL (7-17); Calcium 8.8 mg/dL (8.4-10.2); Carbon Dioxide 22 mmol/L (22-30); Chloride 105 mmol/L (98-107); Glucose 215 mg/dL (74-99); Non-African American GFR(CKD) >90 (>60 ml/min/1.73 sqM); Potassium 4.7 mmol/L (3.5-5.1); Sodium 136 mmol/L (137-145)
[2019-09-29] MEDS: ENOXAPARIN 40 MG/0.4 ML SYRINGE SQ SCH (08:50)
[2019-09-29] MEDS: FUROSEMIDE 20 MG TAB PO SCH (08:51)
[2019-09-29] MEDS: ATORVASTATIN 10 MG TAB PO SCH ×2 (08:51→09:16)
[2019-09-29] MEDS: MULTIVITAMINS, THERA 1 EACH TAB PO SCH (08:51)
[2019-09-29] MEDS: LOSARTAN 25 MG TAB PO SCH (08:51)
[2019-09-29] MEDS: INSULIN ASPART (NovoLOG) 100 UNIT/ML VIAL SQ SCH ×7 (08:52→21:16)
--- NOTE | 2019-09-29 11:00 | ECHOF ---
Referral Reason:Thrombus MEASUREMENTS -------- HEIGHT: 167.6 cm WEIGHT: 86.2 kg BP: 131/70 RVIDd: 2.6 cm (< 3.3) IVSd: 1.3 cm (0.6 - 1.1) LVIDd: 3.9 cm (3.9 - 5.3) LVPWd: 1.4 cm (0.6 - 1.1) IVSs: 1.7 cm LVIDs: 2.0 cm LVPWs: 1.4 cm LAESV Index (A-L): 31.01 ml/m Ao Diam: 2.5 cm (2.0 - 3.7) AV Cusp: 2.0 cm (1.5 - 2.6) LA Diam: 2.8 cm (2.7 - 3.8) RAP: 5.00 mmHg RVSP: 12.51 mmHg FINDINGS -------- Sinus rhythm with extra systolic beats. This was a technically good study. The left ventricular size is normal. There is moderate concentric left ventricular hypertrophy. O verall left ventricular systolic function is low-normal with, an EF between 50 - 55 %. The diastoli c filling pattern is normal for the age of the patient {E/E'}. The right ventricle is normal in size. LA is midly dilated 29-33ml/m2. The right atrial size is normal. Interatrial and interventricular septum intact. The aortic valve is trileaflet and appears structurally normal. The mitral valve is normal. Mild mitral regurgitation is present. The tricuspid valve appears structurally normal. Mild tricuspid regurgitation present. Right vent ricular systolic pressure is normal at < 35 mmHg. Trace/mild (physiologic) pulmonic regurgitation. The aortic root size is normal. Normal inferior vena cava with normal inspiratory collapse consistent with estimated right atrial pre ssure of 5 mmHg. There is a small, generalized pericardial effusion present. CONCLUSIONS -------- 1. There is moderate concentric left ventricular hypertrophy. 2. Overall left ventricular systolic function is low-normal with, an EF between 50 - 55 %. 3. The diastolic filling pattern is normal for the age of the patient {E/E'} 4. LA is midly dilated 29-33ml/m2. 5. Mild tricuspid regurgitation present. 6. Trace/mild (physiologic) pulmonic regurgitation. 7. There is a small, generalized pericardial effusion present. COLLABORATING SUPERVISING PHYSICIAN: Merissa Farooq RDCS
[2019-09-29] MEDS ORDERED: ASPIRIN 325 MG TAB PO SCH (12:00)
[2019-09-29 12:39] LABS: Glucose,Whole Blood 244 mg/dL (75-99)
[2019-09-29] MEDS: CLOPIDOGREL 75 MG TAB PO SCH (16:46)
[2019-09-29 17:33] LABS: Glucose,Whole Blood 235 mg/dL (75-99)
--- NOTE | 2019-09-29 20:28 | P.HPIM ---
History of Present Illness H&P Date: 09/29/19 Chief Complaint: Left leg weakness, change in speech History of presenting complaint: This is a pleasant 58 year old patient of Dr. Nga Patricio. Chronic stable medical conditions include diabetes mellitus, obstructive sleep apnea uses CPAP, diabetic peripheral neuropathy, and thyroid nodules. Patient takes she's had a TIA in the past. On Saturday morning that is 3 days ago she was walking back to her car after working and suddenly felt weak in the left leg and [place]. She was assisted by her colleagues. Still remained weak in the leg. Decided to stay home following day. Left leg remained the. Yesterday she noticed some slurring of speech despite her . And decided to come to the hospital. No headache no change in vision or difficulty swallowing. No lower back pain. Patient has chronic neck pain. Has had fusion cervical spine surgery. Patient this morning noted slight weakness in the left arm. That improved. Speech is not back to normal. Patient denies any left hip pain on lower back pain. Review of systems: GEN.: None EYES: None HEENT: None NECK: None RESPIRATORY: None CARDIOVASCULAR: None GASTROINTESTINAL: None GENITOURINARY: None MUSCULOSKELETAL: Joint pains LYMPHATICS: None HEMATOLOGICAL: None PSYCHIATRY: None NEUROLOGICAL: As above, peripheral numbness Past medical history to include: Possible TIA, diabetes, diabetic peripheral neuropathy, obstructive sleep apnea uses CPAP, thyroid nodule Social history: . Smoked for less than 10 years stopped in 1995. Alcohol occasionally. 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 Physical examination: VITAL SIGNS: 98.8, 98, 18, 137/74, 97% on room air, GENERAL: BMI 30.8, sitting up in bed, awake. EYES: Pupils equal. Conjunctiva normal. HEENT: External appearance of nose and ears normal, oral cavity grossly normal. NECK: JVD not raised; masses not palpable. HEART: First and second heart sounds are normal; no edema. LUNGS: Respiratory rate normal; clear to auscultation. ABDOMEN: Soft, nontender, liver spleen not palpable, no masses palpable. PSYCH: Alert and oriented x3; mood and affect normal. NEUROLOGICAL: [Cranial nerves grossly intact; no facial asymmetry, followed in the left leg 3/5. Decreased sensation distally in both lower extremity. Following the left, 1/5. LYMPHATICS: No lymph nodes palpable in the axilla and neck DERMATOLOGICAL: Superficial bruising on the left knee INVESTIGATIONS, reviewed in the clinical context: White count 4.5 hemoglobin 11.4 platelets 228 progression 2.7 creatinine 0.70 [id number], 214, LDL 86 EKG tracing personally reviewed by me-sinus rhythm Chest x-ray film personally reviewed by me-cardiomegaly, lung palomo clear Computed tomography scan of the cyhhb-ahr-kwizwyk atrophy and chronic changes. No acute. CT angiogram of the brain-no obvious abnormality 2-D echocardiogram-moderate LVH concentric, here 50-55% Assessment: -This is a patient who 3 days ago started off with weakness of the left leg. Following day notice a change in speech. This morning also had slight weakness of left arm. Symptoms are pointing towards right MCA territory infarct. -Diabetes mellitus type 2, uncontrolled with hyperglycemia -Diabetic peripheral neuropathy -Superficial laceration of the left knee skin seconded to fall -Obesity BMI 30.8 -Hyperlipidemia Plan: Neurology was consulted. Neuro checks and place. Home medications resumed. Accu-Cheks will be followed. Patient already received aspirin. Rule out Plavix will also increase the dose of Lipitor to 40 mg daily at bedtime. It was discussed that with the patient. Questions answered. Lovenox for DVT prophylaxis. Consult dietitian. Consult PTOT. Also consult speech therapist. Past Medical History Past Medical History: CVA/TIA, Diabetes Mellitus, Sleep Apnea/CPAP/BIPAP, Thyroid Disorder Additional Past Medical History / Comment(s): thyroid nodules,TIA "yrs ago"-no residual,uses cpap History of Any Multi-Drug Resistant Organisms: None Reported Past Surgical History: Section Additional Past Surgical History / Comment(s): c sect x 3,rt 2nd toe partially amputated,rt digit 2nd digit partial amputed,cervical (cage)fusion Past Anesthesia/Blood Transfusion Reactions: Previous Problems w/ Anesthesia Additional Past Anesthesia/Blood Transfusion Reaction / Comment(s): [facility]no current letter. Unknown family hx-pt adopted Past Psychological History: No Psychological Hx Reported Smoking Status: Former smoker, Never smoker Past Alcohol Use History: Occasional Additional Past Alcohol Use History / Comment(s): quit smoking 1995-smoked approx <10 yrs<1ppd Past Drug Use History: None Reported - Past Family History Mother History Unknown: Yes Additional Family Medical History / Comment(s): pt adopted Medications and Allergies Home Medications Medication Instructions Recorded Confirmed Type Insulin Glargine,Hum.rec.anlog 50 unit SQ QAM 05/27/18 09/28/19 History [Toumatthewo Solostar] Stool Softner 1 cap PO HS 05/27/18 09/28/19 History Atorvastatin [Lipitor] 10 mg PO DAILY 09/28/19 09/28/19 History Dulaglutide [Trulicity] 1.5 mg SQ MO 09/28/19 09/28/19 History Furosemide [Lasix] 20 mg PO DAILY 09/28/19 09/28/19 History INSULIN LISPRO (humaLOG) [humaLOG] 15 units SQ AC-TID 09/28/19 09/28/19 History Irbesartan [Avapro] 75 mg PO DAILY 09/28/19 09/28/19 History Multivitamins, Thera [Multivitamin 1 tab PO DAILY 09/28/19 09/28/19 History (formulary)] Allergies Allergy/AdvReac Type Severity Reaction Status Date / Time No Known Allergies Allergy Verified 09/28/19 13:33 Physical Exam Vitals: Vital Signs Temp Pulse Pulse Resp BP BP Pulse Ox 09/29/19 08:00 95 16 134/70 99 09/29/19 03:59 107 H 16 131/70 99 09/29/19 00:00 101 H 16 141/61 99 09/28/19 20:10 98.6 F 100 16 179/78 97 09/28/19 18:55 98.9 F 100 18 136/71 99 09/28/19 17:20 98.9 F 103 H 18 138/75 99 09/28/19 16:00 98 F 96 16 167/85 98 09/28/19 11:55 98.8 F 98 18 137/74 97 Intake and Output 09/28/19 09/29/19 09/29/19 22:59 06:59 14:59 Other: Voiding Method Toilet Toilet Weight 81.647 kg 86.5 kg Results CBC & Chem 7: 09/29/19 06:09 09/29/19 06:09 Labs: Abnormal Lab Results - Last 24 Hours (Table) 07/27/20 07/27/20 07/27/20 Range/Units 12:53 12:53 12:53 Hgb 10.9 L (11.4-16.0) gm/dL Hct 33.9 L (34.0-46.0) % APTT 20.9 L (22.0-30.0) sec Sodium 134 L (137-145) mmol/L BUN 25 H (7-17) mg/dL Glucose 353 H (74-99) mg/dL POC Glucose (mg/dL) (75-99) mg/dL HDL Cholesterol (40-60) mg/dL 09/28/19 09/28/19 09/29/19 Range/Units 17:15 20:40 06:09 Hgb (11.4-16.0) gm/dL Hct (34.0-46.0) % APTT (22.0-30.0) sec Sodium (137-145) mmol/L BUN (7-17) mg/dL Glucose (74-99) mg/dL POC Glucose (mg/dL) 299 H 261 H 207 H (75-99) mg/dL HDL Cholesterol (40-60) mg/dL 09/29/19 09/29/19 09/29/19 Range/Units 06:09 06:39 07:25 Hgb (11.4-16.0) gm/dL Hct (34.0-46.0) % APTT (22.0-30.0) sec Sodium 136 L (137-145) mmol/L BUN 21 H (7-17) mg/dL Glucose 215 H (74-99) mg/dL POC Glucose (mg/dL) 214 H (75-99) mg/dL HDL Cholesterol 72 H (40-60) mg/dL
[2019-09-29 20:38] LABS: Glucose,Whole Blood 301 mg/dL (75-99)
--- NOTE | 2019-09-29 20:45 | P.CNNES ---
History of Present Illness Consult date: 09/29/19 Requesting physician: Anthony Bennett Reason for Consult: Left-sided weakness History of Present Illness: Patient is a 58-year-old female, who states that on 09/26/2019, patient was leaving work going to garage when her left leg did not work, give out and she fell. She got up and then the leg gave out again and she fell. 2 of her coworkers helped her to go to the car. She was still stumbling. Patient states that on the next day on Saturday, she stayed in her home, rested. Saturday, she did not work either, and took work off. Saturday, which is yesterday, patient spoke to her primary physician, who recommended her to go to the urgent care. Patient went there, and was referred to ER for further evaluation. Patient is noticing left-sided weakness mainly in the left arm and the left leg. Patient feels soreness in the left arm as well as the left knee. She scuffed her knee on the left. Patient denied any double vision, blurred vision headache, slurred speech facial droop or dysphagia. CT head showed age-related atrophic and chronic small vessel ischemic change without acute intracranial process. CTA of the neck showed no significant diameter reduction to account for patient's symptoms. CTA of head unremarkable. EKG shows sinus tachycardia with possible left atrial enlargement. Chest x-ray negative. 2-D echo showed moderate concentric LVH. EF is between 50-55%. Left atrium is mildly dilated. Mild tricuspid regurgitation. EKG shows sinus tachycardia with possible left atrial enlargement. Patient's Chem-7 is significant for sodium 136. Glucose is elevated, total cholesterol 184, LDL 86, HDL 72, triglycerides 129. CBC normal. Her B12 is normal 1982 on 10/03/2018. B6 is 16. TSH normal. Patient has history of diabetes for 20 years. It is not well controlled. She has hypertension. She has diabetic peripheral neuropathy. Patient has history of neck fusion in 2015. Patient is a nonsmoker. 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 Review of Systems As mentioned above in detail. Patient does complain of some neck pain, some stiffness on turning the neck. Patient denies any symptoms in the right side. She has soreness and weakness in the left arm and leg. Denies abdominal pain nausea vomiting diarrhea. Past Medical History Past Medical History: CVA/TIA, Diabetes Mellitus, Sleep Apnea/CPAP/BIPAP, T hyroid Disorder Additional Past Medical History / Comment(s): thyroid nodules,TIA "yrs ago"-no residual,uses cpap History of Any Multi-Drug Resistant Organisms: None Reported Past Surgical History: Section Additional Past Surgical History / Comment(s): c sect x 3,rt 2nd toe partially amputated,rt digit 2nd digit partial amputed,cervical (cage)fusion Past Anesthesia/Blood Transfusion Reactions: Previous Problems w/ Anesthesia Additional Past Anesthesia/Blood Transfusion Reaction / Comment(s): difficult intubation with prior surgery at [facility]-surgery aborted and rescheduled-no current letter. Unknown family hx-pt adopted Past Psychological History: No Psychological Hx Reported Smoking Status: Former smoker, Never smoker Past Alcohol Use History: Occasional Additional Past Alcohol Use History / Comment(s): quit smoking 1995-smoked approx <10 yrs<1ppd Past Drug Use History: None Reported - Past Family History Mother History Unknown: Yes Additional Family Medical History / Comment(s): pt adopted Medications and Allergies Home Medications Medication Instructions Recorded Confirmed Type Insulin Glargine,Hum.rec.anlog 50 unit SQ QAM 05/27/18 09/28/19 History [Toujeo Solostar] Stool Softner 1 cap PO HS 05/27/18 09/28/19 History Atorvastatin [Lipitor] 10 mg PO DAILY 09/28/19 09/28/19 History Dulaglutide [Trulicity] 1.5 mg SQ MO 09/28/19 09/28/19 History Furosemide [Lasix] 20 mg PO DAILY 09/28/19 09/28/19 History INSULIN LISPRO (humaLOG) [humaLOG] 15 units SQ AC-TID 09/28/19 09/28/19 History Irbesartan [Avapro] 75 mg PO DAILY 09/28/19 09/28/19 History Multivitamins, Thera [Multivitamin 1 tab PO DAILY 09/28/19 09/28/19 History (formulary)] Allergies Allergy/AdvReac Type Severity Reaction Status Date / Time No Known Allergies Allergy Verified 09/28/19 13:33 Physical Examination - Vital Signs Vital Signs: Vital Signs Temp Pulse Pulse Resp BP BP Pulse Ox 09/29/19 16:00 92 16 137/80 98 09/29/19 12:00 16 125/94 99 09/29/19 08:00 95 16 134/70 99 09/29/19 03:59 107 H 16 131/70 99 09/29/19 00:00 101 H 16 141/61 99 09/28/19 20:10 98.6 F 100 16 179/78 97 09/28/19 18:55 98.9 F 100 18 136/71 99 Intake and Output 09/29/19 09/29/19 09/29/19 06:59 14:59 22:59 Intake Total 880 Balance 880 Intake: IV 400 Sodium Chloride 0.9% 1, 400 000 ml @ 100 mls/hr IV . Q10H GRACIELA Rx#:[id number] Oral 480 Other: Voiding Method Toilet Weight 86.5 kg On examination patient is a middle aged Afro-[place] female, in no acute distress. Patient is alert and awake fully oriented. Speech and language functions, memory and mentation completely normal. On cranial nerve exam showed pupils are round and reacting to light, visual palomo are full on confrontation. Extraocular muscles are intact with no nystagmus. Face is symmetric, tongue protrudes to the midline. Palatal elevation sensation normal. Hearing and shoulder shrug normal. Muscle strength testing patient is no pronator drift. The strength appears normal in the right arm. 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 Interossei are 4+ to 5- bilaterally. In the lower limbs, her hip flexion, knee extension are normal. Ankle dorsiflexion are bilaterally 4+ to 5-, toe extension 3-bilaterally. Patient is areflexic. Plantars are flat. Sensory touch is equal bilaterally. No ataxia for tqinpl-us-axym testing. Gait deferred. Patient has slight hammertoes. There is no carotid bruit or murmur, mild peripheral edema. Chest is clear, S1 and S2 audible, abdominal soft nontender. Results - Laboratory Findings CBC and BMP: 09/29/19 06:09 09/29/19 06:09 Abnormal Lab Findings: Abnormal Labs 09/28/19 09/28/19 09/28/19 12:53 12:53 12:53 Hgb 10.9 L Hct 33.9 L APTT 20.9 L Sodium 134 L BUN 25 H Glucose 353 H POC Glucose (mg/dL) HDL Cholesterol 09/28/19 09/28/19 09/29/19 17:15 20:40 06:09 Hgb Hct APTT Sodium BUN Glucose POC Glucose (mg/dL) 299 H 261 H 207 H HDL Cholesterol 09/29/19 09/29/19 09/29/19 06:09 06:39 07:25 Hgb Hct APTT Sodium 136 L BUN 21 H Glucose 215 H POC Glucose (mg/dL) 214 H HDL Cholesterol 72 H 09/29/19 09/29/19 12:08 17:02 Hgb Hct APTT Sodium BUN Glucose POC Glucose (mg/dL) 244 H 235 H HDL Cholesterol Assessment and Plan Assessment: * Recurrent falls, likely multifactorial. MRI of the brain negative for any acu te stroke. Examination revealed evidence of significant peripheral neuropathy in bilateral lower and upper extremities. This is likely related to uncontrolled diabetes. * MRI of cervical spine also revealed moderately large left paracentral disc herniation at C6 7 level, creating impression on the left neuroforamen and side of the cord. Patient does not have significant radicular pain. Uncertai n if it is clinically symptomatic. * Diabetes, poorly controlled * Hypertension Plan: * Patient's MRI of the brain revealed no acute stroke. * Patient's hemoglobin A1c was 13.9 on 05/06/2019, suggestive of poorly controlled diabetes. We will repeat hemoglobin A1c. Patient need to optimize control of diabetes to target hemoglobin A1c <7.0. * Patient needs to follow-up with a neurologist for EMG and nerve conductions of upper and lower extremities to evaluate for the type and severity of polyneuropathy. Rule out CIDP. * Consider orthopedic spine consultation for left-sided disc herniation at C6 7 level. * Continue aspirin. * PT OT evaluate gait.
[2019-09-29] MEDS ORDERED: ATORVASTATIN 10 MG TAB PO SCH (21:00)
[2019-09-29] MEDS: INSULIN DETEMIR (LEVEMIR) 100 UNIT/ML SYR SQ SCH (21:16)
[2019-09-29] MEDS: ATORVASTATIN 40 MG TAB PO SCH (21:17)
--- NOTE | 2019-09-29 22:47 | MR ---
EXAMINATION TYPE: MR brain/cspine wo/w DATE OF EXAM: 09/29/2019 COMPARISON: CT brain 09/28/2019 HISTORY: Left leg/arm weakness, hx cervical spine surgery TECHNIQUE: Multiplanar, multisequence images of the brain and brainstem is performed without and with intravenou s contrast. Multiplanar, multisequence images of the cervical spine were acquired with and without in travenous contrast. Total 8.5 mL intravenous Gadavist . FINDINGS: Diffusion weighted images demonstrate no evidence of a recent infarct or other diffusion abnormality. There is no extra-axial fluid collection or significant white matter signal abnormality. The ventr icular system and cisternal spaces are normal in size and appearance. The brain volume is age approp riate. Midline structures demonstrate normal morphology. The craniocervical junction appears within normal limits. Post contrast images demonstrate no abnormal enhancement. The dural venous sinuses appear pa tent. The visualized sinuses are clear and the globes are grossly symmetric. Cervical segments are intact. There is straightening of the cervical lordosis. Postsurgical posterior cervical spine fusion changes from C3 through C5. The cervical cord is of normal signal. Multilevel osteophytic spurring. C2-C3: No posterior disc bulge. No Canal stenosis. Foramina are patent bilaterally. C3-C4: There is central posterior disc protrusion with mass effect on the ventral thecal sac. There i s T2 hyperintense signal of the disc. Canal is partially obscured due to surgical hardware. No Canal stenosis. Foramina are patent bilaterally. C4-C5: There is mild posterior disc bulge. There is T2 hyperintense signal of the disc. No Canal sten osis. Foramina are patent on the right and mildly narrowed on the left. C5-C6: No significant posterior disc bulge. No Canal stenosis. Foramina are patent bilaterally. C6-C7: There is left subarticular focal disc protrusion with significant mass effect on the left late ral recess. Moderate Canal stenosis. Foramina are moderately narrowed bilaterally. C7-T1: Mild posterior disc bulge. No Canal stenosis. Foramina are patent bilaterally. IMPRESSION: 1. No acute intracranial infarct or mass. 2. Postsurgical fusion and multilevel degenerative changes of the cervical spine. There is C6-7 left subarticular focal disc protrusion with significant mass effect on the left lateral recess and moder ate canal stenosis.
--- NOTE | 2019-09-30 04:36 | US ---
EXAMINATION TYPE: US carotid duplex BILAT DATE OF EXAM: 09/29/2019 COMPARISON: CTA 2019, MR 2019 CLINICAL HISTORY: Changes speech and left leg weakness. Changes in speech and left leg weakness. HTN, hyperlipidemia. Hx TIA. EXAM MEASUREMENTS: RIGHT: Peak Systolic Velocity (PSV) cm/sec ----- Right CCA: 47.6 ----- Right ICA: 99.1 ----- Right ECA: 60.7 ICA/CCA ratio: 2.1 RIGHT: End Diastole cm/sec ----- Right CCA: 14.5 ----- Right ICA: 34.4 ----- Right ECA: 11.9 LEFT: Peak Systolic Velocity (PSV) cm/sec ----- Left CCA: 55.5 ----- Left ICA: 74.3 ----- Left ECA: 49.4 ICA/CCA ratio: 1.3 LEFT: End Diastole cm/sec ----- Left CCA: 18.0 ----- Left ICA: 30.3 ----- Left ECA: 11.9 VERTEBRALS (direction of flow): Right Vertebral: Antegrade Left Vertebral: Antegrade Rhythm: Normal Intimal thickening seen bilaterally. Minimal plaque seen bilateral carotid bifurcations. No elevated velocities obtained. ICA/CCA ratio on right: 2.1 and on left: 1.3. Limited visibility of ICA bilater ally. Hypoechoic area seen left neck measurin.5 x 1.3 x 0.6 cm. Incidental findings: -Anechoic area with hyperechoic component seen right thyroid lobe upper pole measurin.9 x 0.9 x 0 .8 cm. -Mixed, heterogeneous area with vascularity seen right thyroid lobe lower pole measurin.0 x 1.6 x 1.6 cm. -Anechoic area with hyperechoic components seen left thyroid lobe lower pole measurin.8 x 1.0 x 0 .8 cm. IMPRESSION: There is antegrade flow in the vertebral arteries. The images and measurements suggest less than 15% stenosis in both internal carotid arteries. Multiple bilateral thyroid abnormalities consistent with benign disease. Criteria for Assigning % of Stenosis / Diameter reduction (Estimation based on the indirect measurements of the internal carotid artery velocities (ICA PSV). 1. Normal (no stenosis)=ICA PSV < 125 cm/s: ratio < 2.0: ICA EDV<40 cm/s. 2. Less than 50% stenosis=ICA PSV < 125 cm/s: ratio < 2.0: ICA EDV<40 cm/s. 3. 50 to 69% stenosis=ICA PSV of 125 to 230 cm/s: ration 2.0 ? 4.0: ICA EDV 40-100 cm/s. 4. Greater than 70% stenosis to near occlusion= ICA PSV > 230 cm/s: ratio > 4.0: ICA EDV > 100 cm/s. 5. Near occlusion= ICA PSV velocities may be low or undetectable: variable ratio and ICA EDV. 6. Total occlusion=unable to detect flow.
[2019-09-30 07:35] LABS: Glucose,Whole Blood 65 mg/dL (75-99)
[2019-09-30] MEDS: ENOXAPARIN 40 MG/0.4 ML SYRINGE SQ SCH (08:38)
[2019-09-30] MEDS: INSULIN ASPART (NovoLOG) 100 UNIT/ML VIAL SQ SCH ×7 (08:38→20:48)
[2019-09-30] MEDS: CLOPIDOGREL 75 MG TAB PO SCH (08:39)
[2019-09-30] MEDS: MULTIVITAMINS, THERA 1 EACH TAB PO SCH (08:39)
[2019-09-30] MEDS: LOSARTAN 25 MG TAB PO SCH (08:39)
[2019-09-30] MEDS: ASPIRIN 81 MG PO SCH (08:39)
[2019-09-30] MEDS: FUROSEMIDE 20 MG TAB PO SCH (08:39)
[2019-09-30] MEDS: ACETAMINOPHEN TAB 325 MG TAB PO PRN ×3 (08:39→18:02)
[2019-09-30] MEDS ORDERED: BACITRACIN ZINC 500 UNIT/GM OINT 28.4 GM TUBE TOPICAL SCH (09:00)
[2019-09-30] MEDS ORDERED: BACITRACIN OINT 1 EACH PACKET TOPICAL SCH (09:00)
[2019-09-30 09:44] VITALS: BMI 30.7
[2019-09-30] MEDS ORDERED: IBUPROFEN 600 MG TAB PO PRN (09:59)
[2019-09-30] MEDS: BACITRACIN ZINC 500 UNIT/GM OINT 28.4 GM TUBE TOPICAL SCH ×3 (10:09→20:48)
[2019-09-30 12:23] LABS: Glucose,Whole Blood 228 mg/dL (75-99)
--- NOTE | 2019-09-30 14:22 | P.PN ---
Subjective Progress Note Date: 09/30/19 Patient complains of left scapular pain. States she has been having this neck and scapular pain off and on for quite some time. No new focal symptoms. Objective - Vital Signs Vital signs: Vital Signs Temp 97.9 F 09/30/19 08:00 Pulse 96 09/30/19 08:00 Resp 18 09/30/19 08:00 BP 121/62 09/30/19 08:00 Pulse Ox 100 09/30/19 08:00 Intake & Output 09/29/19 09/30/19 09/30/19 18:59 06:59 18:59 Intake Total 880 240 240 Balance 880 240 240 Weight 86.5 kg Intake: IV 400 Sodium Chloride 0.9% 1, 400 000 ml @ 100 mls/hr IV . Q10H GRACIELA Rx#:[id number] Oral 480 240 240 Other: Voiding Method Toilet # Voids 1 1 - Exam Mental status speech and language functions are normal. Examination is completely unchanged. - Labs CBC & Chem 7: 09/29/19 06:09 09/29/19 06:09 Labs: Abnormal Lab Results - Last 24 Hours (Table) 09/29/19 09/29/19 09/30/19 Range/Units 17:02 20:37 07:31 POC Glucose (mg/dL) 235 H 301 H 65 L (75-99) mg/dL 09/30/19 Range/Units 12:16 POC Glucose (mg/dL) 228 H (75-99) mg/dL Assessment and Plan Assessment: * Recurrent falls, likely multifactorial. MRI of the brain negative for any acute stroke. Examination revealed evidence of significant peripheral neuropathy in bilateral lower and upper extremities. This is likely related to uncontrolled diabetes. * MRI of cervical spine also revealed moderately large left paracentral disc herniation at C6 7 level, creating impression on the left neuroforamen and side of the cord. Patient does not have significant radicular pain. Uncertain if it is clinically symptomatic. * Diabetes, poorly controlled * Hypertension Plan: * Patient's MRI of the brain revealed no acute stroke. * MRI of cervical spine revealed postsurgical fusion and multilevel degenerative changes of the cervical spine. There is C6-7 left subarticular focal disc protrusion with significant mass effect on the left lateral recess and moderate canal stenosis. We will have orthopedic spine evaluated the patient. * Patient's hemoglobin A1c was 13.9 on 05/06/2019, suggestive of poorly controlled diabetes. Repeat hemoglobin A1c pending. Patient need to optimize control of diabetes to target hemoglobin A1c <7.0. * Patient needs to follow-up with a neurologist for EMG and nerve conductions of upper and lower extremities to evaluate for the type and severity of polyneuropathy. Rule out CIDP. * Continue aspirin. * PT OT evaluate gait.
[2019-09-30 15:43] LABS: Hemoglobin A1C 12.8 % (4.0-6.0)
[2019-09-30 17:25] LABS: Glucose,Whole Blood 192 mg/dL (75-99)
[2019-09-30 20:37] LABS: Glucose,Whole Blood 208 mg/dL (75-99)
[2019-09-30] MEDS: INSULIN DETEMIR (LEVEMIR) 100 UNIT/ML SYR SQ SCH (20:49)
[2019-09-30] MEDS: ATORVASTATIN 40 MG TAB PO SCH (20:52)
--- NOTE | 2019-09-30 21:37 | P.PN ---
Progress Note - Text Progress Note Date: 09/30/19 Chief Complaint: Left leg weakness, change in speech History of presenting complaint: This is a pleasant 58 year old patient of Dr. Nga Patricio. Chronic stable medical conditions include diabetes mellitus, obstructive sleep apnea uses CPAP, diabetic peripheral neuropathy, and thyroid nodules. Patient takes she's had a TIA in the past. On Saturday morning that is 3 days ago she was walking back to her car after working and suddenly felt weak in the left leg and [place]. She was assisted by her colleagues. Still remained weak in the leg. Decided to stay home following day. Left leg remained the. Yesterday she noticed some slurring of speech despite her . And decided to come to the hospital. No headache no change in vision or difficulty swallowing. No lower back pain. Patient has chronic neck pain. Has had fusion cervical spine surgery. Patient this morning noted slight weakness in the left arm. That improved. Speech is not back to normal. Patient denies any left hip pain on lower back pain. Today-MRI of the brain was unremarkable. MRI of the spine shows some disc herniation at C6-C7 level. Patient still has weakness of the left upper extremity and lower extremity. Speech is fine. Review of systems: Was done for constitutional, cardiovascular, GI, pulmonary. Neurological relevant finding as above Active Medications Acetaminophen (Tylenol Tab) 650 mg PO Q6HR PRN PRN Reason: Mild Pain or Fever > 100.5 Last Admin: 09/30/19 18:02 Dose: 650 mg Documented by: Al Hydroxide/Mg Hydroxide (Maalox) 15 ml PO Q6HR PRN PRN Reason: Indigestion Aspirin (Aspirin) 81 mg PO DAILY [facility] Last Admin: 09/30/19 08:39 Dose: 81 mg Documented by: Atorvastatin Calcium (Lipitor) 40 mg PO HS [facility] Last Admin: 09/30/19 20:52 Dose: 40 mg Documented by: Bacitracin (Bacitracin Zinc Oint) 1 applic TOPICAL TID [facility] Last Admin: 09/30/19 20:48 Dose: 1 applic Documented by: Calcium Carbonate/Glycine (Tums) 500 mg PO Q4HR PRN PRN Reason: Dyspepsia Clopidogrel Bisulfate (Plavix) 75 mg PO DAILY [facility] Last Admin: 09/30/19 08:39 Dose: 75 mg Documented by: Enoxaparin Sodium (Lovenox) 40 mg SQ DAILY [facility] Last Admin: 09/30/19 08:38 Dose: 40 mg Documented by: Furosemide (Lasix) 20 mg PO DAILY [facility] Last Admin: 09/30/19 08:39 Dose: 20 mg Documented by: Ibuprofen (Motrin) 600 mg PO TID PRN PRN Reason: Pain Insulin Aspart (Novolog) 0 unit SQ ACHS [facility]; Protocol Last Admin: 09/30/19 20:48 Dose: 3 unit Documented by: Insulin Aspart (Novolog) 15 unit SQ AC-TID [facility] Last Admin: 09/30/19 17:58 Dose: 15 unit Documented by: Insulin Detemir (Levemir) 50 unit SQ HS [facility] Last Admin: 09/30/19 20:49 Dose: 50 unit Documented by: Lactulose (Cephulac) 20 gm PO DAILY PRN PRN Reason: Constipation Losartan Potassium (Cozaar) 25 mg PO DAILY [facility] Last Admin: 09/30/19 08:39 Dose: 25 mg Documented by: Magnesium Hydroxide (Milk Of Magnesia) 2,400 mg PO DAILY PRN PRN Reason: Constipation Melatonin (Melatonin) 3 mg PO HS PRN PRN Reason: Insomnia Multivitamins (Theragran) 1 each PO DAILY [facility] Last Admin: 09/30/19 08:39 Dose: 1 each Documented by: Naloxone HCl (Narcan) 0.2 mg IV Q2M PRN PRN Reason: Opioid Reversal Dulaglutide [ (Trulicity] 1.5 Mg) 1.5 mg SQ Mo@0900 [facility] Ondansetron HCl (Zofran) 4 mg IVP Q8HR PRN PRN Reason: Nausea And Vomiting Physical examination: VITAL SIGNS: 98, 94, 17, 123/61, 99% room air GENERAL: Propped up in bed EYES: Pupils equal. Conjunctiva normal. HEENT: External appearance of nose and ears normal, oral cavity grossly normal. NECK: JVD not raised; masses not palpable. HEART: First and second heart sounds are normal; no edema. LUNGS: Respiratory rate normal; clear to auscultation. ABDOMEN: Soft, nontender, liver spleen not palpable, no masses palpable. PSYCH: Alert and oriented x3; mood and affect normal. NEUROLOGICAL: [Cranial nerves grossly intact; no facial asymmetry, power left leg 3/5. Decreased sensation distally in both lower extremity. Power left upper extremity, 1/5. Patient not hyperreflexive on the left side. DERMATOLOGICAL: Superficial bruising on the left knee INVESTIGATIONS, reviewed in the clinical context: MRI of the brain-nothing acute MRI of the [id number]-xydga-M5-C7 left subarticular focal disc protrusion but a significant mass effect on the left lateral recess and moderate canal stenosis Carotid Doppler-no significant stenosis White count 4.5 hemoglobin 11.4 platelets 228 progression 2.7 creatinine 0.70 Eshd-Qsosj-394, 214, LDL 86 EKG tracing personally reviewed by me-sinus rhythm Chest x-ray film personally reviewed by me-cardiomegaly, lung palomo clear Computed tomography scan of the jxkvu-kdy-trnutee atrophy and chronic changes. No acute. CT angiogram of the brain-no obvious abnormality 2-D echocardiogram-moderate LVH concentric, here 50-55% Assessment: -Patient has left upper extremity and lower extremity weakness. No hyperreflexia. Questionable from C6-C7 disc protrusion. -Patient symptom of temporary speech involvement still suggestive of a recent TIA given that acute stroke was not demonstrated on the MRI.. -Diabetes mellitus type 2, uncontrolled with hyperglycemia -Diabetic peripheral neuropathy -Superficial laceration of the left knee skin seconded to fall -Obesity BMI 30.8 -Hyperlipidemia Plan: Earlier today consultation is made to Dr. Galan from orthopedic spine. Care was discussed with the patient. Continue current medication treatment plan. Patient may need further EMG and neurological studies.
[2019-09-30 22:12] VITALS: TEMP 98.6
[2019-10-01] MEDS: ACETAMINOPHEN TAB 325 MG TAB PO PRN ×2 (06:46)
[2019-10-01 06:53] LABS: Glucose,Whole Blood 263 mg/dL (75-99)
[2019-10-01] MEDS: INSULIN ASPART (NovoLOG) 100 UNIT/ML VIAL SQ SCH ×4 (07:05→13:09)
[2019-10-01] MEDS: MULTIVITAMINS, THERA 1 EACH TAB PO SCH (09:53)
[2019-10-01] MEDS: CLOPIDOGREL 75 MG TAB PO SCH (09:53)
[2019-10-01] MEDS: ENOXAPARIN 40 MG/0.4 ML SYRINGE SQ SCH (09:53)
[2019-10-01] MEDS: ASPIRIN 81 MG PO SCH (09:53)
[2019-10-01] MEDS: LOSARTAN 25 MG TAB PO SCH (09:53)
[2019-10-01] MEDS: BACITRACIN ZINC 500 UNIT/GM OINT 28.4 GM TUBE TOPICAL SCH (09:53)
[2019-10-01] MEDS: FUROSEMIDE 20 MG TAB PO SCH (09:53)
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
[2019-10-01 11:42] VITALS: PULSE 99
[2019-10-01 12:34] LABS: Glucose,Whole Blood 263 mg/dL (75-99)
[2019-10-01 13:48] VITALS: BP 156/73; RESP 20
--- NOTE | 2019-10-01 14:36 | P.PN ---
Subjective Progress Note Date: 10/01/19 Patient complains of left scapular pain. States she has been having this neck and scapular pain off and on for quite some time. No new focal symptoms. Still feels generalized weak. Objective - Vital Signs Vital signs: Vital Signs Temp 98.6 F 09/30/19 20:46 Pulse 99 10/01/19 12:00 Resp 20 10/01/19 12:00 BP 156/73 10/01/19 12:00 Pulse Ox 98 10/01/19 12:00 Intake & Output 09/30/19 10/01/19 10/01/19 18:59 06:59 18:59 Intake Total 240 240 Balance 240 240 Weight 86.5 kg 86 kg Intake: Oral 240 240 Other: Voiding Method Toilet Toilet # Voids 1 2 - Exam Mental status speech and language functions are normal. Examination is completely unchanged. - Labs CBC & Chem 7: 09/29/19 06:09 09/29/19 06:09 Labs: Abnormal Lab Results - Last 24 Hours (Table) 09/29/19 09/30/19 09/30/19 Range/Units 06:09 17:22 20:36 POC Glucose (mg/dL) 192 H 208 H (75-99) mg/dL Hemoglobin A1c 12.8 H (4.0-6.0) % 10/01/19 10/01/19 Range/Units 06:51 12:28 POC Glucose (mg/dL) 263 H 263 H (75-99) mg/dL Hemoglobin A1c (4.0-6.0) % Assessment and Plan Assessment: * Possible TIA manifesting with recurrent falls. MRI of the brain negative for any acute stroke. * Peripheral neuropathy involving bilateral hands and feet, possibly from uncontrolled diabetes, rule out other inflammatory process like CIDP. * Cervical radiculopathy with moderately large left paracentral disc herniation at C6 7 level, creating impression on the left neuroforamen and side of the cord. Patient does not have significant radicular pain. Uncertain if it is clinically symptomatic. * Diabetes, poorly controlled * Hypertension Plan: * Patient's MRI of the brain revealed no acute stroke. Continue dual an tiplatelet medication for 21 days, then stop Plavix and continue aspirin 325 mg daily indefinitely. Continue statins. * MRI of cervical spine revealed postsurgical fusion and multilevel degenerative changes of the cervical spine. There is C6-7 left subarticular focal disc protrusion with significant mass effect on the left lateral recess and moderate canal stenosis. Orthopedic spine consultation appreciated. No surgical indication at this time. * Patient's hemoglobin A1c was 13.9 on 05/06/2019. Repeat hemoglobin A1c from yesterday is 12.8, still suggestive of poorly controlled diabetes. Patient states that she runs into hypoglycemia, suggestive of brittle diabetes. Patient need to optimize control of diabetes to target hemoglobin A1c <7.0. * Patient needs to follow-up with a neurologist for EMG and nerve conductions of upper and lower extremities to evaluate for the type and severity of polyneuropathy. Rule out CIDP. * PT OT evaluate gait.
--- NOTE | 2019-10-01 18:38 | P.DS ---
Providers Date of admission: 09/28/19 15:44 Expected date of discharge: 10/01/19 Attending physician: Anthony Bennett Consults: 09/29/19 12:26 Consult Physician Stat Consulting Provider: Pio Christopher Consult Reason/Comments: left sided weakness Do you want consulting provider notified?: Yes 09/30/19 12:45 Consult Physician Urgent Consulting Provider: Amy Boo Consult Reason/Comments: CERVICAL DISC HERNIATION Do you want consulting provider notified?: Yes Primary care physician: Kehinde Patricio [facility] Course: Chief Complaint: Left leg weakness, change in speech History of presenting complaint: This is a pleasant 58 year old patient of Dr. Nga Patricio. Chronic stable medical conditions include diabetes mellitus, obstructive sleep apnea uses CPAP, diabetic peripheral neuropathy, and thyroid nodules. Patient takes she's had a TIA in the past. On Saturday morning that is 3 days ago she was walking back to her car after working and suddenly felt weak in the left leg and [place]. She was assisted by her colleagues. Still remained weak in the leg. Decided to stay home following day. Left leg remained the. Yesterday she noticed some slurring of speech despite her . And decided to come to the hospital. No headache no change in vision or difficulty swallowing. No lower back pain. Patient has chronic neck pain. Has had fusion cervical spine surgery. Patient this morning noted slight weakness in the left arm. That improved. Speech is not back to normal. Patient denies any left hip pain on lower back pain. MRI of the brain was unremarkable. MRI of the spine shows some disc herniation at C6- C7 level. Patient was seen by Dr. Galan from orthopedics. It is not felt that the cervical spine findings it is possible to patient's left arm and leg weakness. CIDP is in the differential. Today-case was discussed with Dr. Sutton from neurology length. We believe the patient did have a TIA. Cervical spine findings on the MRI not felt to be responsible left-sided weakness. Further neurological workup by neurology as an outpatient. This was discussed with the patient. Patient does of insulin further adjusted. She may need an outpatient endocrinology follow-up. Questions were answered. Patient has been given few days off for work and follow-up with neurology and PCP. Discussion and discharge planning more than 35 minutes Consultation: Dr. Sutton from neurology Dr. Boo from orthopedic spine Physical examination: VITAL SIGNS: 98.6, 99, 17, 124/58, 98% on room air GENERAL: Propped up in bed EYES: Pupils equal. Conjunctiva normal. HEENT: External appearance of nose and ears normal, oral cavity grossly normal. NECK: JVD not raised; masses not palpable. HEART: First and second heart sounds are normal; no edema. LUNGS: Respiratory rate normal; clear to auscultation. ABDOMEN: Soft, nontender, liver spleen not palpable, no masses palpable. PSYCH: Alert and oriented x3; mood and affect normal. NEUROLOGICAL: [Cranial nerves grossly intact; no facial asymmetry, power left leg 3/5. Decreased sensation distally in both lower extremity. Power left upper extremity, 1/5. Reflexes are diminished on the left side both arm and leg DERMATOLOGICAL: Superficial bruising on the left knee INVESTIGATIONS, reviewed in the clinical context: MRI of the brain-nothing acute MRI of the B-[id number]-K9-C7 left subarticular focal disc protrusion but a significant mass effect on the left lateral recess and moderate canal stenosis Carotid Doppler-no significant stenosis White count 4.5 hemoglobin 11.4 platelets 228 progression 2.7 creatinine 0.70 Iwmz-Ddsmg-920, 214, LDL 86 EKG tracing personally reviewed by me-sinus rhythm Chest x-ray film personally reviewed by me-cardiomegaly, lung palomo clear Computed tomography scan of the htujm-vvo-omxiabe atrophy and chronic changes. No acute. CT angiogram of the brain-no obvious abnormality 2-D echocardiogram-moderate LVH concentric, here 50-55% Assessment: -TIA -Patient has left upper extremity and lower extremity weakness. Not felt to be from cervical spine disc protrusion. CIDP to be worked up as an outpatient. -Diabetes mellitus type 2, uncontrolled with hyperglycemia -Diabetic peripheral neuropathy -Superficial laceration of the left knee skin seconded to fall -Obesity BMI 30.8 -Hyperlipidemia Disposition: Home Patient Condition at Discharge: Stable Plan - Discharge Summary Discharge Rx Participant: Yes New Discharge Prescriptions: New Aspirin 81 mg PO DAILY chew Bacitracin Zinc Oint 1 applic TOPICAL TID applic Atorvastatin [Lipitor] 40 mg PO HS #30 tab Clopidogrel [Plavix] 75 mg PO DAILY #21 tab Continue Stool Softner 1 cap PO HS Multivitamins, Thera [Multivitamin (formulary)] 1 tab PO DAILY Irbesartan [Avapro] 75 mg PO DAILY Furosemide [Lasix] 20 mg PO DAILY Dulaglutide [Trulicity] 1.5 mg SQ MO Changed INSULIN LISPRO (humaLOG) [humaLOG] 18 units SQ AC-TID #0 Insulin Glargine,Hum.rec.anlog [Dayanara Lara] 62 unit SQ QAM #0 Discontinued Atorvastatin [Lipitor] 10 mg PO DAILY Discharge Medication List Stool Softner 1 cap PO HS 05/27/18 [History] Dulaglutide [Trulicity] 1.5 mg SQ MO 09/28/19 [History] Furosemide [Lasix] 20 mg PO DAILY 09/28/19 [History] Irbesartan [Avapro] 75 mg PO DAILY 09/28/19 [History] Multivitamins, Thera [Multivitamin (formulary)] 1 tab PO DAILY 09/28/19 [History] Aspirin 81 mg PO DAILY chew 10/01/19 [Rx] Atorvastatin [Lipitor] 40 mg PO HS #30 tab 10/01/19 [Rx] Bacitracin Zinc Oint 1 applic TOPICAL TID applic 10/01/19 [Rx] Clopidogrel [Plavix] 75 mg PO DAILY #21 tab 10/01/19 [Rx] INSULIN LISPRO (humaLOG) [humaLOG] 18 units SQ AC-TID #0 10/01/19 [Rx] Insulin Glargine,Hum.rec.anlog [Dayanara Lara] 62 unit SQ QAM #0 10/01/19 [Rx] Follow up Appointment(s)/Referral(s): Amy Boo DO [Doctor of Osteopathic Medicine] - 10/09/19 1:30 pm Kehinde Patricio DO [Primary Care Provider] - 10/02/19 1:00 pm (Teleheath appointment ) Stephanie Abdalla MD [Medical Doctor] - 10/13/19 3:20 pm Patient Instructions/Handouts: Transient Ischemic Attack (DC), Stroke (DC) Activity/Diet/Wound Care/Special Instructions: Physical Therapy Rx in chart, patient may bring Rx to any Therapy clinic she chooses. Discharge/Stand Alone Forms: Work/School Release / Restrict Discharge Disposition: HOME SELF-CARE
[2019-10-05] MEDS ORDERED: Dulaglutide [Trulicity] 1.5 MG SQ SCH (09:00)
== END 2019-10-01 17:08 | disposition home or self-care (01) | DRG 69 ==
LOC: EC 11:51 → UNDOADMIN 15:43 → 3SCARD 15:43
PROVIDERS: ADMIT Hospitalist; ATTEND Hospitalist
DX: G45.9 Transient cerebral ischemic attack, unspecified (principal); G61.81 Chronic inflammatory demyelinating polyneuritis; Z11.59 Encounter for screening for other viral diseases; M50.223 Other cervical disc displacement at C6-C7 level; S81.012A Laceration without foreign body, left knee, initial encounter; I11.9 Hypertensive heart disease without heart failure; E11.42 Type 2 diabetes mellitus with diabetic polyneuropathy; G31.9 Degenerative disease of nervous system, unspecified; E11.65 Type 2 diabetes mellitus with hyperglycemia; Z79.4 Long term (current) use of insulin; Z89.421 Acquired absence of other right toe(s); G47.33 Obstructive sleep apnea (adult) (pediatric); E04.2 Nontoxic multinodular goiter; G89.29 Other chronic pain; R00.0 Tachycardia, unspecified; E66.9 Obesity, unspecified; E78.5 Hyperlipidemia, unspecified; R53.1 Weakness; I07.1 Rheumatic tricuspid insufficiency; R29.6 Repeated falls; M48.02 Spinal stenosis, cervical region; M25.512 Pain in left shoulder; R47.81 Slurred speech; W19.XXXA Unspecified fall, initial encounter; Z71.3 Dietary counseling and surveillance; Z68.30 Body mass index [BMI] 30.0-30.9, adult; Z79.899 Other long term (current) drug therapy; Z86.73 Personal history of transient ischemic attack (TIA), and cerebral infarction without residual deficits; Z98.1 Arthrodesis status; Z89.021 Acquired absence of right finger(s); Z87.891 Personal history of nicotine dependence
CPT/HCPCS: 36415; 70450; 70496; 70498; 70553; 71046; 72156; 80048; 80053; 80061; 83036; 84484; 85025; 85610; 85730; 93005; 93306; 93880; 96360; 96361; 99285

== ENCOUNTER → 2019-10-09 | Outpatient (CLI) | payer MEDICAID | END | disposition home or self-care (01) | LOC: LABWHC1 10:35 | PROVIDERS: ATTEND Podiatrist | DX: E11.42 Type 2 diabetes mellitus with diabetic polyneuropathy (principal); I10 Essential (primary) hypertension; I73.9 Peripheral vascular disease, unspecified; L97.812 Non-pressure chronic ulcer of other part of right lower leg with fat layer exposed; L97.822 Non-pressure chronic ulcer of other part of left lower leg with fat layer exposed | CPT/HCPCS: 36415; 84134 ==

== ENCOUNTER → 2019-10-16 | Outpatient (CLI) | payer MEDICAID | END | disposition home or self-care (01) | LOC: LABWHC1 13:52 | PROVIDERS: ATTEND Nurse Practitioner Family | DX: G61.81 Chronic inflammatory demyelinating polyneuritis (principal) | CPT/HCPCS: 36415; 85652; 86140 ==

== ENCOUNTER → 2019-10-27 | Outpatient (CLI) | payer MEDICAID ==
--- NOTE | 2019-10-27 11:00 | US ---
EXAMINATION TYPE: US venous doppler duplex LE DATE OF EXAM: 10/27/2019 10:01 AM COMPARISON: NONE CLINICAL HISTORY: I73.9 PERIPHERAL VASCULAR DISEASE, UNSPECIFIED. Patient c/o bilateral calf pain and left thigh pain with walking and relieved by sitting. Se also c/o same symptoms with climbing stairs and has to stop midway to relieve pain. Pt stated is diabetic. Bilateral lower extremity anterior l eg ulcers are present. LOWER EXTREMITY VENOUS INSUFFICIENCY SIDE PERFORMED: bilateral 1) Color flow is present and patency is documented in the following vessels. No DVT or SVT is noted . Common Femoral Vein Deep Femoral Vein Femoral Vein Popliteal Vein Proximal Calf Veins Greater Saph Vein (GSV) Upper Small Saph Vein 2) There is venous reflux noted at the following venous levels: Right upper GSV venous reflux is de monstrated. 3) Incompetent perforators are noted at these levels: none seen IMPRESSION: Venous reflux as discussed above.
--- NOTE | 2019-10-28 11:50 | P.ARTDOP ---
Arterial Doppler LOWER EXTREMITY ARTERIAL DOPPLER: DATE OF SERVICE: 10/27/2019 Reason for study: Ulcers bilateral lower legs. Doppler waveforms: Multiphasic bilaterally throughout with excellent toe waveforms. Pulse volume recording: []. Pressure gradients: None. Ankle-brachial indices: Greater than 1 bilaterally. Toe brachial indices: 0.99 on the right, 0.79 on the left Impression: Normal study.
== END | disposition home or self-care (01) ==
LOC: RADUSWWP 09:05
PROVIDERS: ATTEND Podiatrist
DX: E11.42 Type 2 diabetes mellitus with diabetic polyneuropathy (principal); I73.9 Peripheral vascular disease, unspecified; I10 Essential (primary) hypertension; L97.822 Non-pressure chronic ulcer of other part of left lower leg with fat layer exposed; L97.812 Non-pressure chronic ulcer of other part of right lower leg with fat layer exposed
CPT/HCPCS: 93922; 93970

== ENCOUNTER → 2020-01-18 | Outpatient (CLI) | payer MEDICAID ==
--- NOTE | 2020-01-19 09:37 | MM ---
Reason for exam: screening (asymptomatic). Last mammogram was performed 1 year and 5 months ago. History: Patient is postmenopausal. Family history of breast cancer in mother. Benign excisional biopsy of the right breast, 2017. Physical Findings: A clinical breast exam by your physician is recommended on an annual basis and results should be correlated with mammographic findings. MG Screening Mammo w CAD Bilateral CC and MLO view(s) were taken. Prior study comparison: August 14, 2018, bilateral MG screening mammo w CAD. November 01, 2016, mammogram, performed at [facility]. The breast tissue is heterogeneously dense. This may lower the sensitivity of mammography. No significant changes when compared with prior studies. ASSESSMENT: Benign, BI-RAD 2 RECOMMENDATION: Routine screening mammogram of both breasts in 1 year.
== END | disposition home or self-care (01) ==
LOC: RADMAMWWP 11:03
PROVIDERS: ATTEND Family Medicine
DX: Z12.31 Encounter for screening mammogram for malignant neoplasm of breast (principal)
CPT/HCPCS: 77067

== ENCOUNTER → 2020-03-16 | Outpatient (CLI) | payer MEDICAID ==
[2020-03-16 15:00] LABS: HCT 33.6 % (34.0-46.0); HGB 11.1 gm/dL (11.4-16.0); MCHC 33.1 g/dL (31.0-37.0); MCV 87.6 fL (80.0-100.0); Mean Platelet Volume 7.7; Platelet Count 231 k/uL (150-450); RBC 3.83 m/uL (3.80-5.40); RDW 13.2 % (11.5-15.5); WBC 5.3 k/uL (3.8-10.6)
[2020-03-16 15:08] LABS: INR 0.9 (<1.2); Partial Thromboplastin Time 22.1 sec (22.0-30.0)
[2020-03-16 15:10] LABS: Calcium 8.8 mg/dL (8.4-10.2); Potassium 4.7 mmol/L (3.5-5.1)
--- NOTE | 2020-03-16 15:21 | XR ---
EXAMINATION TYPE: XR chest 2V DATE OF EXAM: 03/16/2020 COMPARISON: Chest x-ray September 28, 2019 HISTORY: Presurgical study. TECHNIQUE: Frontal and lateral views of the chest are obtained. FINDINGS: There is no new suspicious focal air space opacity, pleural effusion, or pneumothorax seen . The cardiac silhouette size remains within normal limits. The osseous structures are intact. IMPRESSION: No acute cardiopulmonary process. No significant change from prior.
== END | disposition home or self-care (01) ==
LOC: LABPAT 14:21
PROVIDERS: ATTEND Orthopaedic Surgery Orthopaedic Surgery of the Spine
DX: Z01.818 Encounter for other preprocedural examination (principal); M50.223 Other cervical disc displacement at C6-C7 level
CPT/HCPCS: 36415; 71046; 80048; 85027; 85610; 85730; 93005

== ENCOUNTER → 2020-03-17 | Outpatient (CLI) | payer MEDICAID ==
[2020-03-17 13:58] LABS: Appearance,Urine Clear (Clear); Bilirubin,Urine Negative (Negative); Blood,Urine Negative (Negative); Color,Urine Light Yellow; Glucose,Urine (UA) 4+ (Negative); Ketones,Urine Negative (Negative); Leukocyte Esterase,Urine Negative (Negative); Mucus,Urine Rare /hpf; Nitrite,Urine Negative (Negative); PH, Urine 6.5 (5.0-8.0); Protein,Urine 1+ (Negative); RBC,Urine 1 /hpf (0-5); Specific Gravity,Urine 1.021 (1.001-1.035); Squamous Epithelial Cell,Urine <1 /hpf (0-4); Urobilinogen,Urine <2.0 mg/dL (<2.0); WBC,Urine 1 /hpf (0-5)
== END | disposition home or self-care (01) ==
LOC: LABPAT 13:08
PROVIDERS: ATTEND Orthopaedic Surgery Orthopaedic Surgery of the Spine
DX: Z01.818 Encounter for other preprocedural examination (principal); M50.223 Other cervical disc displacement at C6-C7 level
CPT/HCPCS: 81001

== ENCOUNTER 2020-03-28 06:05 | Day surgery (SDC) | payer MEDICAID ==
[2020-03-18 10:31] VITALS: BMI 29.8
[~2020-03-28 06:05] MED LIST changes: -DEXAMETHASONE SOD PHOSPHATE 10 MG/ML 1 ML VIAL IV ONE; +DEXAMETHASONE SOD PHOSPHATE 4 MG/ML 1 ML VIAL IV ONE; -HYDROmorphone 0.5 MG/0.5 ML SYRINGE IVP PRN; -Pre Op ABX Message 1 EACH MISC MISCELLANE ONE; +ceFAZolin 1,000 MG in SODIUM CHLORIDE 0.9% IRRIGATIO 1,000 ML IRRIGATION PRN
[2020-03-28 06:52] LABS: Glucose,Whole Blood 145 mg/dL (75-99)
[2020-03-28] MEDS ORDERED: LIDOCAINE 1% (10MG/ML) FOR IV START INTRADERMA ONE (06:54)
[2020-03-28] MEDS ORDERED: METOCLOPRAMIDE 5 MG/ML 2 ML VIAL ONE (06:55)
[2020-03-28] MEDS ORDERED: FAMOTIDINE 20 MG/2 ML VIAL IV ONE (06:59)
[2020-03-28] MEDS ORDERED: HYDROmorphone 0.5 MG/0.5 ML SYRINGE IVP PRN ×2 (07:00→09:09)
[2020-03-28] MEDS ORDERED: PHENYLEPHRINE 10 MG/ML VIAL ONE (07:06)
[2020-03-28] MEDS ORDERED: PROPOFOL 10 MG/ML 20 ML VIAL IV ONE (07:06)
[2020-03-28] MEDS ORDERED: DEXAMETHASONE SOD PHOSPHATE 10 MG/ML 1 ML VIAL ONE (07:06)
[2020-03-28] MEDS ORDERED: SUCCINYLCHOLINE CHLORIDE VIAL 200 MG/10 ML VIAL IV ONE (07:06)
[2020-03-28] MEDS ORDERED: fentaNYL (PF) 50 MCG/ML 2 ML AMP ONE (07:06)
[2020-03-28] MEDS ORDERED: LIDOCAINE 1% INJ 10MG/ML (20 ML MDV) ONE (07:06)
[2020-03-28] MEDS ORDERED: MIDAZOLAM 2 MG/2 ML VIAL ONE (07:06)
[2020-03-28] MEDS ORDERED: GELATIN SPONGE,ABSORB (LARGE) 1 EACH SPONGE MISCELLANE ONE (07:50)
[2020-03-28] MEDS ORDERED: LIDOCAINE 1%-EPI 1:100,000 20 ML VIAL SQ ONE ×2 (07:51)
[2020-03-28] MEDS ORDERED: THROMBIN (BOVINE) 5,000 UNIT VIAL MISCELLANE ONE (07:51)
[2020-03-28] MEDS ORDERED: BENZOCAINE/MENTHOL LOZENG 1 EACH LOZENGE MUCOUS MEM PRN (09:09)
[2020-03-28] MEDS ORDERED: ONDANSETRON 4 MG/2 ML VIAL IVP PRN (09:09)
[2020-03-28] MEDS ORDERED: ACETAMINOPHEN TAB 325 MG TAB PO PRN (09:09)
[2020-03-28] MEDS ORDERED: HYDROcodone/APAP 5-325MG 1 EACH TAB PO PRN (09:09)
[2020-03-28] MEDS ORDERED: traMADol 50 MG TAB PO PRN ×2 (09:10→09:27)
[2020-03-28] MEDS ORDERED: tiZANidine 4 MG TAB PO PRN (09:10)
--- NOTE | 2020-03-28 09:10 | XR ---
EXAMINATION TYPE: XR cervical spine 1V DATE OF EXAM: 03/28/2020 COMPARISON: NONE HISTORY: Needle placement TECHNIQUE: Crosstable lateral view of the cervical spine was obtained intraoperatively. FINDINGS: Needle localization device is at the anterior C6 level. IMPRESSION: As above
--- NOTE | 2020-03-28 09:12 | XR ---
EXAMINATION TYPE: XR cervical spine limited DATE OF EXAM: 03/28/2020 COMPARISON: NONE HISTORY: hardware placement TECHNIQUE: Crosstable lateral view of the cervical spine FINDINGS: Postoperative changes of ACDF at C5 C7. Anterior fixation plate and intervertebral spacers are well seated. IMPRESSION: As above
[2020-03-28] MEDS ORDERED: SODIUM CHLORIDE 0.9% 1,000 ML IV SCH (09:15)
--- NOTE | 2020-03-28 09:16 | P.OP ---
Date of Procedure: 03/28/20 Preoperative Diagnosis: Herniated nucleus pulposis C67, cervical stenosis C5 6 C6 7, history of prior fusion C3 3 to 5 posteriorly, neck pain, upper extremity radiculopathy, upper extremity weakness, degenerative disc disease Postoperative Diagnosis: Same Anesthesia: GETA Pathology: none sent Condition: stable Description of Procedure: BRIEF OPERATIVE NOTE Preoperative Diagnosis:Herniated nucleus pulposis C67, cervical stenosis C5 6 C6 7, history of prior fusion C3 3 to 5 posteriorly, neck pain, upper extremity radiculopathy, upper extremity weakness, degenerative disc disease Postoperative Diagnosis:Herniated nucleus pulposis C67, cervical stenosis C5 6 C6 7, history of prior fusion C3 3 to 5 posteriorly, neck pain, upper extremity radiculopathy, upper extremity weakness, degenerative disc disease Procedure: Anterior cervical decompression with discectomy and fusion C5 6 C6 7 Placement of interbody graft C5 6 C6 7 Application of anterior cervical plate C5 6 and 7 Surgeon: Dr. Boo Door To Door Salesperson: Tim Amezcua is present throughout the entire the case persistence during positioning, dissection, exposure, visualization, and all crucial elements of the case as well as closure. Anesthesia: General anesthesia per Dr. Dias Estimated blood loss: Approximate 40 mL Complications: None apparent Components implanted: K2M [place] anterior cervical plate system with 6 screws and ViKos interbody allograft bone graft and 1 mL of DBX bone putty Disposition: To recovery room in good stable condition. OPERATIVE INDICATIONS The patient has had long-standing issues in their neck and upper extremities. In the past she had actually undergone posterior cervical decompression and fusion with stabilization that C3 4 C4 5. Over time she has had increasing pain at her neck and into her upper extremities. She has had some weakness at her extremity more recently. She is also found to have disc herniation at C6 7 with significant stenosis C5 6. These findings correlated well with her new and worsening symptoms at her neck and cervical spine and upper extremity. She is not having long-standing lasting benefit with conservative treatment. The patient has been through conservative treatment. We discussed various treatment options including surgery, and the patient wishes to proceed with surgery We discussed the risk, patient's alternatives and benefits of surgery including but not limited to, risk of bleeding risk of infection, risk of need for further surgery, risk of decreased, loss of motion, muscle function, malunion nonunion, hardware failure, nerve damage, paralysis, heart attack, and . OPERATIVE SUMMARY After discussing all the risks, patient alternatives and benefits at length, the patient elected to proceed with surgical intervention, signed informed consent, and presented for their procedure. The patient was seen and examined in the preoperative holding area and the surgical site was marked. The patient was given antibiotics and brought to the operating room. The patient was positioned on the operating room table in a supine position being careful to pad any bony prominences and pressure points. The patient was sedated and intubated by anesthesia in standard fashion. Once the airway and C- spine were stabilized the patient's arms were padded and tucked at her side, with her shoulders gently taped. The head was placed in a donut pad with the neck in good neutral alignment and position. We were careful to maintain the patient's cervical spine and good neutral alignment and position throughout. The patient was prepped and draped in a normal standard fashion. An appropriate timeout and keystone protocol performed. We were able to proceed with the surgery. The local wound area was infiltrated with local anesthetic. An incision was made transversely approximately 2-1/2 cm over the appropriate levels at C6. Dissection was taken down subcutaneously to the level of the p latysma which was split in line with its fibers. Dissection was taken with a carotid approach, with the trachea and esophagus medial and the carotid sheath laterally. We dissected down to the anterior surface of the vertebral bodies. Intraoperative x-ray was taken which showed a marker at the appropriate level of the vertebral body of C6. With the appropriate level positively confirmed, we were able to proceed with discectomy at the appropriate levels starting at C6 7 and then moving 56. All of the operative levels were exposed appropriately. The patient had all their twitches back, and there was no evidence of recurrent laryngeal issue. The wound was copiously irrigated and suctioned dry as had been done periodically throughout the case. At the appropriate level/levels, I established an annulotomy with an 11 blade scalpel. There were very large osteophytes at C5 6 and C6 7 which had to be taken down. A discectomy was performed with a combination of pituitary rongeurs, curettes, a high-speed bur, and Kerrison rongeurs. The posterior longitudinal ligament was taken down as were any posterior osteophytes. Note was made of significant protrusion and stenosis both at C5 6 and 67. There was extruded disc herniation at C6 7 as well. I was able to remove the stenosis and remove any extruded fragments of disc herniation. This gave good central and bilateral foraminal decompression. There is no evidence of any dural tear or leak. The endplates were prepared with a high-speed bur. With the endplates in good parallel position, I was able to size for the appropriate size interbody graft. The wound was irrigated and suctioned dry the graft was prepared and malleted into position. It had good alignment and position with the anterior surface flush with the anterior surface of the vertebral bodies. This was done similarly the appropriate levels first at C6 7 and at C5 6. With the grafts intact, I was able to measure and contour and appropriate sized plate. The plate was positioned at the midline over the appropriate levels at C5 6 and 7. Screw holes were established with a hand drill and drill guide. Screws were placed in good alignment and position with excellent bony purchase. They were seated under the locking device. The construct was checked and found to be stable. Intraoperative x-ray was taken which showed good alignment and position of the implants at the appropriate levels. There was no evidence of any dural tear or leak. Good hemostasis was maintained. The wound was copiously irrigated and suctioned dry as had been done periodically throughout the case. The platysma was closed with absorbable suture. The subcutaneous tissue was closed. The subcuticular tissue was closed with absorbable suture. The wound was cleaned and dried and dressed appropriately. A soft cervical collar was placed appropriately. The patient was woken up by anesthesia, extubated, transferred back gently to their hospital bed and brought to the recovery room in good stable condition. The patient will be admitted to the hospital for appropriate postoperative care, medical management and monitoring. We will continue to follow them closely about the postoperative course.
[2020-03-28 09:32] VITALS: TEMP 96.8
[2020-03-28 10:37] LABS: Glucose,Whole Blood 170 mg/dL (75-99)
[2020-03-28 10:42] VITALS: RESP 18
[2020-03-28 10:44] VITALS: BP 122/55
[2020-03-28] MEDS ORDERED: HYDROcodone/APAP 5-325MG 1 EACH TAB PO ONE (10:48)
[2020-03-28 11:01] VITALS: PULSE 103
[2020-03-28] MEDS ORDERED: INSULIN ASPART (NovoLOG) 100 UNIT/ML VIAL SQ SCH (12:30)
[2020-03-28] MEDS ORDERED: INSULIN DETEMIR (LEVEMIR) 100 UNIT/ML SYR SQ SCH (21:00)
[2020-03-28] MEDS ORDERED: ATORVASTATIN 40 MG TAB PO SCH (21:00)
[2020-03-29] MEDS ORDERED: CLOPIDOGREL 75 MG TAB PO SCH (09:00)
[2020-03-29] MEDS ORDERED: ASPIRIN 81 MG PO SCH (09:00)
[2020-03-29] MEDS ORDERED: FUROSEMIDE 20 MG TAB PO SCH (09:00)
[2020-03-29] MEDS ORDERED: LOSARTAN 25 MG TAB PO SCH (09:00)
[2020-03-29] MEDS ORDERED: SENNOSIDES-DOCUSATE SODIUM 1 EACH TAB PO SCH ×2 (09:00)
[2020-03-31] MEDS ORDERED: Dulaglutide [Trulicity] 1.5 MG/0.5 ML Pen.Injctr SQ SCH (09:00)
== END 2020-03-28 11:59 | disposition home or self-care (01) ==
LOC: OR 06:05 → 6PED 09:35 → OR 11:59
PROVIDERS: ATTEND Orthopaedic Surgery Orthopaedic Surgery of the Spine
DX: M48.02 Spinal stenosis, cervical region (principal); M50.10 Cervical disc disorder with radiculopathy, unspecified cervical region; M50.123 Cervical disc disorder at C6-C7 level with radiculopathy; M25.78 Osteophyte, vertebrae; I10 Essential (primary) hypertension; E78.5 Hyperlipidemia, unspecified; E10.9 Type 1 diabetes mellitus without complications; R26.81 Unsteadiness on feet; Z86.19 Personal history of other infectious and parasitic diseases; E66.9 Obesity, unspecified; Z68.31 Body mass index [BMI] 31.0-31.9, adult; G47.33 Obstructive sleep apnea (adult) (pediatric); Z99.89 Dependence on other enabling machines and devices; E04.1 Nontoxic single thyroid nodule; I69.354 Hemiplegia and hemiparesis following cerebral infarction affecting left non-dominant side; Z98.891 History of uterine scar from previous surgery; Z90.710 Acquired absence of both cervix and uterus; Z98.890 Other specified postprocedural states; Z98.1 Arthrodesis status; Z87.891 Personal history of nicotine dependence; Z89.421 Acquired absence of other right toe(s); Z89.021 Acquired absence of right finger(s); Z79.02 Long term (current) use of antithrombotics/antiplatelets; Z79.4 Long term (current) use of insulin; Z79.891 Long term (current) use of opiate analgesic; Z79.899 Other long term (current) drug therapy
CPT/HCPCS: 86900; 86901; 86850; 72020; 72040; 22551; 22552; 22845; 20931; C1713 ×2; C1762; J2250; J0330; J1100; J2370; J2765; J0690 ×2; J2405; J2001; J3010; J2704

== ENCOUNTER → 2020-04-21 | Outpatient (CLI) | payer MEDICAID ==
--- NOTE | 2020-04-21 09:30 | USB ---
Reason for exam: clinical finding. History: Patient is postmenopausal. Family history of breast cancer in mother. Benign excisional biopsy of the right breast, 2017. Indicated problem(s): pain in the right breast. Physical Findings: Nurse Summary: soft, moves (nurse dw). US Breast Limited RT Technologist: Rena Marshall Right limited breast ultrasound including focal area of concern, retroareolar and axilla demonstrates a 2.3 x 0.7 x 1.1cm lymph node at the axilla, prominent but not enlarged. No cystic or solid lesion seen. Scanned 11 to 3 o'clock and axilla. These results were verbally communicated with the patient and result sheet given to the patient on 04/21/20. ASSESSMENT: Benign, BI-RAD 2 RECOMMENDATION: Return to routine screening mammogram schedule for both breasts. Back on schedule for January 2021. Manage on a clinical basis with regard to right breast pain.
== END | disposition home or self-care (01) ==
LOC: RADUSWWP 07:39
PROVIDERS: ATTEND Family Medicine
DX: N64.4 Mastodynia (principal)

== ENCOUNTER → 2020-07-28 | Outpatient (CLI) | payer MEDICAID ==
--- NOTE | 2020-07-28 13:45 | CONS ---
CONSULTATION DATE OF SERVICE: 07/28/2020 A 59-year-old lady has been evaluated in Sleep Center for treatment of obstructive sleep apnea-hypopnea syndrome. HISTORY OF PRESENT ILLNESS/SLEEP-WAKE EVALUATION: The patient has history of obstructive sleep apnea for more than 10 years. She continued to use her CPAP equipment every night but recently she developed snoring while using her machine and has episodes of stopped breathing while using her CPAP equipment. The sleep schedule from midnight until 9 a.m. Sometimes she has problems with falling asleep, has TV set in bedroom. Usually sleeps on the side position and again as I mentioned above, according to her , she snores loudly and has episodes of stopped breathing during sleep. She wakes up from sleep once with nocturia and she feels that pressure is not enough in her CPAP unit. [place] Sleepiness Scale is 8. No history of hypnagogic hallucinations, sleep paralysis or cataplexy. I checked her CPAP machine. It is an automatic regimen. Range of the pressure is 5 to 20 with average pressure 18.5 cm of water. Usage is every night, 100% for more than 4 hours, average 9 hours per night. Mask fit is 100%. Apnea-hypopnea index reading is 5.2. PAST MEDICAL HISTORY: Positive for hypertension, episodes of tachycardia, TIA in September of 2019, hyperlipidemia, sinus problems, headaches, acid reflux, diabetes mellitus, iron deficiency anemia. PAST SURGICAL HISTORY: Neck surgery in March 2020, partial hysterectomy in 2002, C-sections x3, hernia repair. FAMILY HISTORY: Heart problems. SOCIAL HISTORY: Positive for smoking. Quit smoking in 1995. Alcohol consumption: None at the present time. REVIEW OF SYSTEMS: Awakenings from sleep with snoring and gasping for air while patient is on treatment with CPAP. No fevers. No double vision. No recent chest pain. No shortness of breath. No abdominal pain. No bleeding episodes. No blood in the urine. No seizure episodes. PHYSICAL EXAMINATION: GENERAL; lady without distress. VITAL SIGNS: BP 154/77, HR 96, RR 12, height 5 feet 5 inches, weight 195.4, body mass index 32.4, temperature 97.1, oxygen saturation at room air 99%. HEENT: PERRLA, EOMI. Oropharynx extremely low position of soft palate. Mallampati 4. NECK: Neck is wide 16-1/2 inches in circumference. LUNGS: Clear to percussion and to auscultation. Good air exchange. No wheezing or rhonchi. HEART: S1, S2 regular. No murmurs, gallops, or rubs. ABDOMEN: Obese. EXTREMITIES: No clubbing or cyanosis. ETL APPLICATION DEVELOPER: Awake, alert, and oriented X3. Cranial nerves 2 to 7 intact. There is no fasciculation or atrophy. noted. No focal deficits observed. IMPRESSION: 1. History of obstructive sleep apnea-hypopnea syndrome for more than 10 years. The patient continued to use CPAP equipment 100% of the time, but wakes up from sleep with snoring and gasping for air. Wide neck, extremely low position of soft palate, auto PAP machine on automatic regimen with maximal pressure of 20 cm of water. Average pressure 18.5. Apnea-hypopnea index 5.2. 2. Obesity, body mass index 32.4. 3. Hypertension. 4. Episodes of tachycardia. 5. History of transient ischemic attack in September of 2019. 6. Hyperlipidemia. 7. Sinuses problems. 8. Headaches. 9. Acid reflux. 10.Diabetes mellitus. 11.History of iron deficiency anemia. 12.Status post partial hysterectomy 2002. 13.Status post neck surgery in March 2020. PLAN: 1. Repeat PAP titration for re-evaluation of effective positive pressure at the present time to prevent any snoring or any abnormalities of respiration during the sleep and may need BiPAP machine. 2. Losing weight program. 3. Sleep hygiene with regular time in bed for 7-1/2 to 8 hours. 4. No driving if feeling sleepiness. 5. CPAP unit should be checked with a manometer to be sure that it is working properly. If necessary, replacement of PAP equipment. 6. To get results of previous sleep study and titration. .. Thank you very much for allowing me to participate in management of your patient. Sincerely, Almas Duncan MD, PhD, FAASM Diplomat of [place] [employer] [place] [employer] [facility] Ruth MMLARRYL / DANISH: [id number] /
== END ==
LOC: SLEEP 11:37
PROVIDERS: ATTEND Internal Medicine
DX: R06.83 Snoring (principal); E66.9 Obesity, unspecified; I10 Essential (primary) hypertension; R00.0 Tachycardia, unspecified; E78.5 Hyperlipidemia, unspecified; J34.89 Other specified disorders of nose and nasal sinuses; R51.9 Headache, unspecified; K21.9 Gastro-esophageal reflux disease without esophagitis; E11.9 Type 2 diabetes mellitus without complications; Z86.2 Personal history of diseases of the blood and blood-forming organs and certain disorders involving the immune mechanism; Z90.711 Acquired absence of uterus with remaining cervical stump; Z98.890 Other specified postprocedural states; Z86.73 Personal history of transient ischemic attack (TIA), and cerebral infarction without residual deficits; Z68.32 Body mass index [BMI] 32.0-32.9, adult; Z87.891 Personal history of nicotine dependence
CPT/HCPCS: 99211

== ENCOUNTER → 2021-01-03 | Outpatient (CLI) | payer BC ==
[~2021-01-03] MED LIST changes: -DEXAMETHASONE SOD PHOSPHATE 4 MG/ML 1 ML VIAL IV ONE; -LACTATED RINGERS 1,000 ML IV SCH; -MIDAZOLAM 2 MG/2 ML VIAL IV PRN; -ONDANSETRON 4 MG/2 ML VIAL IVP ONE; +REGADENOSON 0.4 MG/5 ML SYRINGE IV PRN; -SCOPOLAMINE 1.5MG/72HR PATCH TRANSDERM ONE; -ceFAZolin 1,000 MG in SODIUM CHLORIDE 0.9% IRRIGATIO 1,000 ML IRRIGATION PRN
--- NOTE | 2021-01-03 11:43 | NM ---
EXAMINATION TYPE: NM stress lexiscan cardiolite DATE OF EXAM: 01/03/2021 COMPARISON: NONE HISTORY: History of tobacco use in the past, hypertension, diabetes, asthma, and hypercholesterolemia presents with chest pain and palpitations TECHNIQUE: After the intravenous administration of 9.4 mCi Tc 99m Sestamibi - Cardiolite resting SPE CT images acquired 45 minutes post injection. The patient received 0.4mg Lexiscan, 25.7 mCi Tc 99m Sestamibi - Stress images obtained [address] injection FINDINGS: Review of stress and rest SPECT images demonstrates poor uptake involving the anteroseptal wall on st ress images versus rest images extending from base to the apex. There is overall poor uptake on rest images also. Possible artifact. Cannot exclude acute ischemia at this level. Gated analysis shows nor mal wall motion with an estimated left ventricular ejection fraction of 54 %. IMPRESSION: As above. Consider further investigation with direct catheter angiogram based on clinical and EKG correlation. A Yellow level critical message alert has been initiated for Kehinde Patricio DO via the [facility] Critical Results System on 01/03/2021 11:39 AM. This message alert has been sent to Kehinde choi DO via the preferences provided by the clinician for the receipt of Radiology Critical Findings . Message ID [id number].
--- NOTE | 2021-01-03 15:25 | EST ---
EXERCISE STRESS DATE OF SERVICE: January 03, 2021. INDICATION: Chest pain. AGE: 60 SEX: F HT: 5'7" WT: 190 lbs. PROTOCOL: Seven STAGE: 3 DURATION OF EXERCISE: 7:00 HEART RATE REST: 65 BLOOD PRESSURE REST: 148/93 MAXIMUM HEART RATE ACHIEVED: 161 MAXIMUM BLOOD PRESSURE: 129/73 85% MPHR: 148 100% MPHR: 174 METS: 8.9 STRESS DATA: Heart rate 99, pressure is 148/84 mmHg. Baseline EKG showed sinus mechanism. 0.4 mg of Lexiscan given over 15 seconds per protocol. Max heart rate was 109 beats per minute. Maximum pressure was 129/73 mmHg. Clinically the patient did not have any symptoms. The EKG did not show any significant ST or T-wave abnormalities concerning for ischemia. CONCLUSION: 1. Nondiagnostic electrocardiogram stress testing in response to Lexiscan. 2. Please follow up on the Cardiolite portion on a separate report from Radiology Department. MMODL / IJN: [id number] /
== END | disposition home or self-care (01) ==
LOC: RADNMMAIN 07:54
PROVIDERS: ATTEND Family Medicine
DX: R07.9 Chest pain, unspecified (principal); I10 Essential (primary) hypertension; E11.9 Type 2 diabetes mellitus without complications; E78.00 Pure hypercholesterolemia, unspecified
CPT/HCPCS: 93017; 78452; A9500; J2785

== ENCOUNTER → 2024-09-30 | Outpatient (CLI) | payer MEDICARE ==
[2024-09-30 15:27] VITALS: BP 179/79; PULSE 88; RESP 16; TEMP 98.5
--- NOTE | 2024-09-30 16:03 | P.SLEEP ---
History of Present Illness DATE: 09/30/2024 CONSULTATION/NEW PATIENT EVALUATION HISTORY OF PRESENT ILLNESS/SLEEP-WAKE EVALUATION: 63-year-old lady had been e valuated in the sleep center for obstructive sleep apnea hypopnea syndrome. Patient has a long history of obstructive sleep apnea. Patient continue to use your CPAP equipment every night. I checked AirSense 11 ResMed CPAP unit. Usage is 100% of nights, average 8.3 hours per night. Pressure 5 to 20 cm of water, average 15.1 cm of water. Leak is 0 L/min. Apnea-hypopnea index is 2.6, which is normal. Ramp started at the pressure of 4 cm of water. Patient feels that the pressure in the machine to lower when she is starting it. SLEEP SCHEDULE: Usually sleep schedule by 5 hours per night. FALLING ASLEEP: Sometimes patient has difficulties with falling asleep. DURING SLEEP: Occasionally snoring with CPAP. Patient may wake up from sleep up to 2 times with nocturia. No history of hypnogogical hallucinations, sleep paralysis, or cataplexy. DURING THE DAY/WAKE STATE: []. [place] sleepiness scale is 9, which is borderline.[]. PAST MEDICAL HISTORY: Hypertension, hyperlipidemia, acid reflux, diabetes mellitus, TIA in 2019. PAST SURGICAL HISTORY: , neck surgery. MEDICATIONS: Metoprolol, Lantus, atorvastatin, gabapentin, aspirin, probiotics, iron supplement, vitamin D supplement. SOCIAL HISTORY: Please see below. FAMILY HISTORY: Please see below. REVIEW OF SYSTEMS: Occasional awakenings from sleep. No fevers. No double vision. No recent chest pain. No shortness of breath. No abdominal pain. No bleeding episodes. No blood in urine. No seizure episodes. PHYSICAL EXAMINATION: GENERAL: A pleasant patient without any distress. VITAL SIGNS: Please see below, weight 221.4 pounds, BMI 39.1. HEENT: PERRLA, EOMI. Evaluation of oropharynx showed tongue protrudes midline, low position of soft palate Mallampati 4. NECK: Supple. No JVD. Thyroid is not palpable. 17-3/4 inches in circumference. LUNGS: Clear to percussion and to auscultation. Good air exchange. No wheezing or rhonchi. HEART: S1, S2 regular. No murmurs, gallops or rubs. ABDOMEN: Soft and nontender. Bowel sounds are present. No organomegaly appreciated. EXTREMITIES: No clubbing or cyanosis. TRANSPORT COORDINATOR: Awake, alert, and oriented x3. Cranial nerves 2 to 7 intact. There is no fasciculation or atrophy noted. No focal deficits observed. ASSESSMENT: 1. Obstructive sleep apnea hypopnea syndrome for many years. Patient continue to use your AutoPap equipment every night. Reading from the machine showed 100% compliance, normal apnea hypopnea index 2.6 and no significant leak from the mask. 2. Obesity, BMI 39.1. 3. Hypertension. 4. History of TIA in 2019. 5 hyperlipidemia. 6 . Diabetes mellitus. 7. Acid reflux. 8. Status post neck surgery. 9 . Status post . PLAN: 1. Continue to use AutoPap equipment every night for the whole night. I adjusted pressure of starting a ramp up to 6 cm of water. 2. Prescription for all necessary CPAP supplies including mask of choice, heated tubes, filters, water chamber. 3. Preferable position during sleep on the side. 4. No driving if patient feels any sleepiness. Patient is aware of civil and criminal liability for unsafe driving. 5. Sleep hygiene with regular sleep time for at least 7.5-8 hours. 6. Watching and losing weight. 7. Follow-up visit in 6 months. Thank you very much for referring this patient for consultation. Sincerely, Almas Duncan MD, PhD, FAASM. Diplomat of [place] [employer], Sleep Medicine Board by [place] [employer] [place] [employer] Speech Language Pathologist [facility] [place] cc: Kehinde Patricio DO Past Medical History Past Medical History: CVA/TIA, Diabetes Mellitus, Musculoskeletal Disorder, Sleep Apnea/CPAP/BIPAP, Thyroid Disorder Additional Past Medical History / Comment(s): thyroid nodules,TIA "yrs ago X 2"- no residual,uses cpap, neck surgery - fusion, kidney issues, neuropathy History of Any Multi-Drug Resistant Organisms: None Reported Past Surgical History: Section Additional Past Surgical History / Comment(s): c sect x 3,rt 2nd toe partially amputated,rt digit 2nd digit partial amputed,cervical (cage)fusion, bone scraping - left thigh Past Anesthesia/Blood Transfusion Reactions: Previous Problems w/ Anesthesia Additional Past Anesthesia/Blood Transfusion Reaction / Comment(s): difficult intubation with prior [id number] ab[facility] and rescheduled-no current letter. Unknown family hx-pt adopted Past Psychological History: No Psychological Hx Reported Smoking Status: Former smoker Past Alcohol Use History: Rare Additional Past Alcohol Use History / Comment(s): quit smoking 1995-smoked approx <10 yrs<1ppd Past Drug Use History: None Reported - Past Family History Mother History Unknown: Yes Family Medical History: Unable to Obtain Additional Family Medical History / Comment(s): pt adopted Medications and Allergies Home Medications Medication Instructions Recorded Confirmed Type Stool Softner 1 cap PO DIRECTED PRN 05/27/18 03/28/20 History Dulaglutide [Trulicity] 3 mg SQ WEEKLY 09/28/19 03/28/20 History Furosemide [Lasix] 20 mg PO DAILY 09/28/19 03/28/20 History Irbesartan [Avapro] 75 mg PO DAILY 09/28/19 03/28/20 History Aspirin 81 mg PO DAILY chew 10/01/19 03/28/20 Rx Atorvastatin [Lipitor] 40 mg PO HS #30 tab 10/01/19 03/28/20 Rx Clopidogrel [Plavix] 75 mg PO DAILY #21 tab 10/01/19 03/28/20 Rx Dapagliflozin Propanediol [Farxiga] 10 mg PO HS 03/18/20 03/28/20 History INSULIN LISPRO (humaLOG) [humaLOG] 18 units SQ AC-TID PRN 03/18/20 03/28/20 History Insulin Glargine,Hum.rec.anlog 80 unit SQ HS 03/18/20 03/28/20 History [Tofrankie Lara] Vitamin B-12 (Unknown Dose) 1 tab PO DAILY 03/18/20 03/28/20 History tiZANidine [Zanaflex] 2 mg PO BID PRN 03/18/20 03/28/20 History traMADol HCL [Ultram] 50 - 100 mg PO DIRECTED PRN 03/18/20 03/28/20 History HYDROcodone/APAP 5-325MG [[place] 5] 1 each PO Q6HR PRN #28 tab 03/28/20 Rx Allergies Allergy/AdvReac Type Severity Reaction Status Date / Time No Known Allergies Allergy Verified 03/28/20 06:20 Physical Exam Vitals: Vital Signs Temp Pulse Resp BP Pulse Ox 09/30/24 15:25 98.5 F 88 16 179/79 99 Intake and Output 09/30/24 09/30/24 09/30/24 06:59 14:59 22:59 Other: Weight 100.357 kg Sleep Note - Sleep Data ESS Total: 9 - Sleep Note Sleep Note: Temperature: 98.5 F Pulse Rate: 88 Respiratory Rate: 16 Blood Pressure: 179/79 SpO2: 99 Height: 5 ft 3 in Weight: 100.357 kg BMI: Neck Circumference: 17.7
== END ==
LOC: 3 N SLEEP 15:09
PROVIDERS: ATTEND Internal Medicine
DX: G47.33 Obstructive sleep apnea (adult) (pediatric) (principal); E66.9 Obesity, unspecified; I10 Essential (primary) hypertension; E78.5 Hyperlipidemia, unspecified; E11.9 Type 2 diabetes mellitus without complications; K21.9 Gastro-esophageal reflux disease without esophagitis; Z68.39 Body mass index [BMI] 39.0-39.9, adult; Z86.73 Personal history of transient ischemic attack (TIA), and cerebral infarction without residual deficits; Z98.891 History of uterine scar from previous surgery; Z98.890 Other specified postprocedural states; Z87.891 Personal history of nicotine dependence
CPT/HCPCS: 99202